=== PATIENT | male | born 1975 | race Two or more races ===

== ENCOUNTER 2022-01-27 09:11 | Inpatient (IN) | payer SELFPAY ==
[~2022-01-27] VITALS: Ht 172.7 cm; Wt 83.6 kg
[2022-01-27] VITALS (16 sets, daily range): BP systolic 101–126; BP diastolic 60–89
[2022-01-27] MEDS ORDERED: CLOPIDOGREL 300 MG TAB PO ONE (09:30)
[2022-01-27] MEDS ORDERED: ASPirin 81 mg TAB PO ONE ×2 (09:30)
[2022-01-27] MEDS ORDERED: HEPARIN 1,000 UNITS/ml 1ML VIAL IV ONE (09:30)
[2022-01-27] MEDS ORDERED: HEPARIN DRIP/D5W 100UNITS/ML 250 ML IV ONE (09:41)
[2022-01-27 09:43] LABS: Basophils # (auto) 0.1 10 ^3/uL (0-0.2); Eosinophils # (auto) 0.3 10 ^3/uL (0-0.8); Eosinophils % (auto) 2.3 % (0.0-7.0); Hemoglobin 14.5 g/dL (13.5-17.5); Lymphocytes # (auto) 2.7 10 ^3/uL (0.4-5.4); Mean Corpuscular Hemoglobin 32.9 pg (28.0-32.0); Mean Corpuscular Hgb Conc. 33.7 g/dL (32.0-36.0); Mean Corpuscular Volume 97.8 fL (80.0-100.0); Monocytes # (auto) 0.6 10 ^3/uL (0-1.3); Monocytes % (auto) 5.6 % (0.0-12.0); Neutrophils # (auto) 7.9 10 ^3/uL (1.6-8.6); Neutrophils % (auto) 68.1 % (37.0-80.0); Nucleated Red Blood Cells % 0.1 %; Red Cell Distribution Width 13.2 % (11.8-14.3); White Blood Cell 11.6 10^3/uL (4.4-10.8)
[2022-01-27] MEDS ORDERED: SODIUM CHLORIDE 0.9% 1,000 ML IV ONE (09:45)
[2022-01-27] MEDS ORDERED: NITROGLYCERIN 0.4 MG SL TAB SL PRN ×2 (09:45→10:45)
[2022-01-27] MEDS ORDERED: MORPHINE SULFATE INJ 2 MG/ml SYRG IV PRN ×2 (09:45→10:45)
[2022-01-27] MEDS ORDERED: HEPARIN DRIP/D5W 100UNITS/ML 250 ML IV SCH ×2 (09:45→10:00)
[2022-01-27] MEDS ORDERED: ANGIOMAX 250 MG VIAL IV ONE (09:50)
[2022-01-27] MEDS ORDERED: HEPARIN SODIUM (PORCINE) 5000 UNITS/ML 1ML VIAL ONE (09:50)
[2022-01-27] MEDS ORDERED: VERAPAMIL 2.5MG/ML INJ 2ML VIAL IV ONE (09:50)
[2022-01-27] MEDS ORDERED: fentaNYL CITRATE 100 MCG/2 ML VL ONE (09:50)
[2022-01-27] MEDS ORDERED: MIDAZOLAM HCL 2MG/2ML 2ml VIAL (1mg/ml) ONE (09:50)
[2022-01-27] MEDS ORDERED: SODIUM CHL 0.9% 50 ML ONE (09:51)
[2022-01-27] MEDS ORDERED: LIDOCAINE 2%HCL (LOCAL ANESTH.) INJ 20ML MDV ONE (09:51)
[2022-01-27 09:57] LABS: INR 0.95 (0.9-1.15); Partial Thromboplastin Time 22.7 sec (24.6-33.4)
[2022-01-27 10:02] LABS: Albumin 3.9 g/dL (3.4-5.0); Calcium 9.2 mg/dL (8.5-10.1); Magnesium 2.4 mg/dL (1.6-2.6); Potassium 4.9 mmol/L (3.5-5.1)
[2022-01-27 10:05] LABS: BUN/Creatinine Ratio 13.3; Bilirubin, Total 0.4 mg/dL (0.2-1.0); Total Protein 7.1 g/dL (6.4-8.2)
[2022-01-27] MEDS ORDERED: ATROPINE SULF 1 MG/10ml SYR ONE (10:13)
[2022-01-27] MEDS ORDERED: IODIXANOL 320MG/ML 100ML BTL IV ONE ×2 (10:15→10:45)
[2022-01-27] MEDS ORDERED: CLOPIDOGREL 300 MG TAB ONE (10:27)
[2022-01-27] MEDS ORDERED: EPTIFIBATIDE INJ (2MG/ML) 10ML VIAL IV ONE ×2 (10:28→10:41)
[2022-01-27] MEDS: ATORVASTATIN 20 MG TAB PO SCH (23:12)
[2022-01-28] VITALS (17 sets, daily range): BP systolic 78–114; BP diastolic 30–73
[2022-01-28 03:47] LABS: Basophils # (auto) 0.1 10 ^3/uL (0-0.2); Basophils % (auto) 0.6 % (0.0-2.0); Eosinophils # (auto) 0.2 10 ^3/uL (0-0.8); Eosinophils % (auto) 1.7 % (0.0-7.0); Hematocrit 37.5 % (41.0-53.0); Hemoglobin 12.8 g/dL (13.5-17.5); Lymphocytes # (auto) 3.3 10 ^3/uL (0.4-5.4); Lymphocytes % (auto) 23.7 % (10.0-50.0); Mean Corpuscular Hemoglobin 33.2 pg (28.0-32.0); Mean Corpuscular Hgb Conc. 34.1 g/dL (32.0-36.0); Mean Corpuscular Volume 97.4 fL (80.0-100.0); Monocytes % (auto) 7.1 % (0.0-12.0); Neutrophils # (auto) 9.4 10 ^3/uL (1.6-8.6); Neutrophils % (auto) 66.9 % (37.0-80.0); Red Blood Cells 3.85 10^6/uL (4.5-5.90); Red Cell Distribution Width 13.2 % (11.8-14.3)
[2022-01-28 03:58] LABS: Potassium 4.2 mmol/L (3.5-5.1)
[2022-01-28 04:03] LABS: BUN/Creatinine Ratio 23.7; Calcium 8.4 mg/dL (8.5-10.1)
[2022-01-28] MEDS: SODIUM CHLORIDE 0.9% 1,000 ML IV SCH ×2 (09:15→17:39)
[2022-01-28] MEDS ORDERED: ALPRAZolam 0.25 MG TAB PO PRN (09:15)
[2022-01-28] MEDS: CLOPIDOGREL BISULFATE 75 MG TAB PO SCH (09:44)
[2022-01-28] MEDS: ASPirin 81 mg TAB PO SCH (09:44)
[2022-01-28] MEDS: NICOTINE 7MG/24HR TOPICAL PATCH TD SCH (10:19)
[2022-01-28] MEDS: ATORVASTATIN 20 MG TAB PO SCH (21:40)
[2022-01-29 05:00] VITALS: BP 103/59
[2022-01-29 09:00] VITALS: BP 100/62
[2022-01-29] MEDS: CLOPIDOGREL BISULFATE 75 MG TAB PO SCH (10:48)
[2022-01-29] MEDS: NICOTINE 7MG/24HR TOPICAL PATCH TD SCH (10:48)
[2022-01-29] MEDS: ASPirin 81 mg TAB PO SCH (10:48)
[2022-01-29 12:46] VITALS: BP 100/65
[2022-01-29] MEDS ORDERED: BUSP7.5T8 PO (14:54)
[2022-01-29] MEDS ORDERED: ATOR20TA50 PO (14:54)
[2022-01-29] MEDS ORDERED: ASPI-325 PO (14:54)
[2022-01-29] MEDS ORDERED: CLOP75TA70 PO (14:54)
[2022-01-29 17:40] VITALS: BP 127/86
== END 2022-01-29 18:50 | disposition home or self-care (01) | DRG 247 ==
LOC: ER 09:11 → TELE 09:40 → ICU WEST 11:20 → CENTRAL 01-28 16:59 → TELE-CENTR 01-28 21:33
PROVIDERS: ADMIT Registered Nurse; ATTEND Nurse Practitioner Acute Care
PROC: 027034Z Dilation of Coronary Artery, One Artery with Drug-eluting Intraluminal Device, Percutaneous Approach (ICD-10-PCS; principal; 2022-01-27)
PROC: B2111ZZ Fluoroscopy of Multiple Coronary Arteries using Low Osmolar Contrast (ICD-10-PCS; 2022-01-27)
DX: I21.19 ST elevation (STEMI) myocardial infarction involving other coronary artery of inferior wall (principal); K46.9 Unspecified abdominal hernia without obstruction or gangrene; E78.5 Hyperlipidemia, unspecified; F17.200 Nicotine dependence, unspecified, uncomplicated; I25.10 Atherosclerotic heart disease of native coronary artery without angina pectoris; Z20.822 Contact with and (suspected) exposure to COVID-19
CPT/HCPCS: 36415; 71045; 80048; 80053; 83735; 83880; 84484; 85025; 85610; 85730; 86850; 86900; 86901; 92928; 93005; 93306; 93458; 96361; 96374; 99152; 99153; 99291; C1874; C1887; G0378; J2250; Q9967

== ENCOUNTER 2024-03-30 22:59 | Emergency (ER) | payer MEDICAID ==
[~2024-03-30] VITALS: Ht 172.7 cm; Wt 84.2 kg
[~2024-03-30 22:59] MED LIST: ASPI-325 PO; ATOR20TA50 PO; BUSP7.5T8 PO; CLOP75TA70 PO
--- NOTE | 2024-03-30 23:38 | ECG ---
[facility] Test Date: 2024-03-30 Test Time: 23:23:41 Pat Name: JANICE GRIFFIN Department: ER Room: Gender: M Well [employer] Pumper: : 1975 Requested By: WALTER RETANA Order Number: [id number] Reading MD: Raymon Gross Measurements Intervals [place] Rate: 58 P: 74 HI: 153 QRS: -12 QRSD: 104 T: -33 QT: 412 QTc: 405 Interpretive Statements Sinus rhythm Inferior infarct, age indeterminate Minimal ST elevation, anterior leads Electronically Signed On 03-31-2024 8:28:32 PST by Raymon Gross Please click the below link to view image of tracing.
[2024-03-30 23:54] LABS: Basophils # (auto) 0.1 10 ^3/uL (0-0.2); Basophils % (auto) 0.8 % (0.0-2.0); Eosinophils # (auto) 0.2 10 ^3/uL (0-0.8); Eosinophils % (auto) 2.1 % (0.0-7.0); Hematocrit 42.8 % (41.0-53.0); Hemoglobin 14.6 g/dL (13.5-17.5); Lymphocytes # (auto) 2.5 10 ^3/uL (0.4-5.4); Lymphocytes % (auto) 23.3 % (10.0-50.0); Mean Corpuscular Hemoglobin 33.6 pg (28.0-32.0); Mean Corpuscular Hgb Conc. 34.2 g/dL (32.0-36.0); Mean Corpuscular Volume 98.5 fL (80.0-100.0); Monocytes # (auto) 0.7 10 ^3/uL (0-1.3); Monocytes % (auto) 6.4 % (0.0-12.0); Neutrophils # (auto) 7.1 10 ^3/uL (1.6-8.6); Neutrophils % (auto) 67.4 % (37.0-80.0); Nucleated Red Blood Cells % 0.2 %; Platelet Count (auto) 214 10^3/uL (140-450); Red Blood Cells 4.35 10^6/uL (4.5-5.90); White Blood Cell 10.6 10^3/uL (4.4-10.8)
--- NOTE | 2024-03-30 23:57 | DVH ---
EXAMINATION: PA and lateral chest radiographs CLINICAL HISTORY: SOB COMPARISON: CHEST PORTABLE on DOS: 01/28/22 FINDINGS: No dominant consolidation. The costophrenic angles appear clear. No sizable pleural effusions or pne umothorax. The cardiomediastinal silhouette appears within normal limits. IMPRESSION: No acute cardiopulmonary findings.
[2024-03-31] MEDS: MAALOX PLUS or MAALOX 30 ML PO ONE (00:06)
[2024-03-31] MEDS: ONDANSETRON ODT 4 MG TAB PO ONE (00:06)
[2024-03-31] MEDS: LIDOCAINE VISCOUS 2% 15ML UD MT ONE (00:07)
[2024-03-31 00:09] LABS: Chloride 105 mmol/L (98-107); Potassium 4.1 mmol/L (3.5-5.1); Sodium 140 mmol/L (136-145)
[2024-03-31 00:10] LABS: Anion Gap 9 (5-15); Carbon Dioxide 26 mmol/L (20-31)
[2024-03-31 00:15] LABS: BUN/Creatinine Ratio 16.2 (10.0-20.0); Blood Urea Nitrogen 16 mg/dL (9-23); Glucose 119 mg/dL (74-106)
--- NOTE | 2024-03-31 00:17 | DVH ---
CT SCAN ABDOMEN AND PELVIS WITHOUT CONTRAST CLINICAL HISTORY: Abd pain TECHNIQUE: Helical axial images are obtained from the lung bases through the pelvis without oral cont rast. No intravenous contrast was administered. Coronal and sagittal reformatted images were generate d from thin section reconstructions. One or more of the following radiation dose reduction techniques were used for this examination: automated exposure control, adjustment of the mA and/or kV according to patient size, use of iterative reconstruction technique. COMPARISON: None FINDINGS: LOWER THORAX: Mild dependent atelectasis/ scarring in the imaged lung bases. Coronary artery calcifications. ABDOMEN AND PELVIS: Evaluation of visceral and vascular structures is limited due to lack of contrast administration. As visualized, the unenhanced liver, spleen, pancreas and adrenals appear grossly unremarkable. Gallbladder is mildly distended with multiple calculi. A stone is also noted within the gallbladder n sánchez. No hydroureteronephrosis. Aortoiliac atherosclerotic calcifications. No evidence of abdominal aortic aneurysm. No evidence of bowel obstruction. Normal caliber appendix. No free intraperitoneal air or fluid ident ified. No sizable bladder calculus. Prostate calcifications noted. Fat containing left inguinal hernia. No destructive osseous lesions identified. IMPRESSION: Cholelithiasis with gallbladder distention. A stone is also noted within the gallbladder neck. Ultras ound may be obtained to further evaluate for possible cholecystitis. Other ancillary findings as above. HS:Y
[2024-03-31 00:31] LABS: Lipase 40 U/L (12-53)
--- NOTE | 2024-03-31 00:35 | ED.PDOC ---
History of Present Illness HPI Comments 49 y/o M, with a Hx of HLD, HTN, MD, PTCA, hernia repair, and polysubstance use, presents with c/o epigastric abdominal pain, nausea, vomiting, shortness of breath, dizziness, lightheadedness, and generalized weakness, today. Patient endorses on sudden and unprovoked onset of symptoms at around 2000, yesterday, evening. Patient comments on pain being an 8/10 and similar to when he had an MD 2x years ago, with exception of left-arm pain he had then. Patient informs on difficulty breathing subsiding at time of assessment and having no recent lifestyle or diet changes or event occurrences in his life. He denies having any chest pain, cough, hematemesis, diarrhea, urinary symptoms, fever, chills, or other associated symptoms or modifiers at this time. Chief Complaint: Abdominal Pain Time Seen by MD: 23:50 Primary Care Provider: none Reviewed Notes: Nurses Notes, Medications, Allergies Allergies: Coded Allergies: NO KNOWN ALLERGIES (Unverified , 01/27/22) Home Meds Active Scripts Buspirone Hcl (Buspirone Hcl) 7.5 Mg Tab, 1 TAB PO BID, #60 TAB 2 Refills Prov:ROSEMARIE SZYMANSKI NP 01/29/22 Clopidogrel Bisulfate (CLOPIDOGREL) 75 Mg Tab, 75 MG PO DAILY for 60 Days, #60 TAB Prov:ROSEMARIE SZYMANSKI NP 01/29/22 Atorvastatin Calcium (ATORVASTATIN CALCIUM) 20 Mg Tab, 80 MG PO HS for 60 Days, #240 TAB Prov:ROSEMARIE SZYMANSKI NP 01/29/22 Aspirin (Aspirin Low Dose) 81 Mg Tab, 81 MG PO DAILY for 60 Days, #60 TAB Prov:ROSEMARIE SZYMANSKI NP 01/29/22 Information Source: Patient Mode of Arrival: Ambulatory Past Medical History PAST MEDICAL HISTORY: High Lipids, HTN, MD Surgical History: Hernia Repair, PTCA Family History Family History: Reviewed,noncontributory to illness Social History Smoker: Cigarettes Alcohol: Occasionally Drugs: Denies Drug Use Lives In: Home Constitutional: denies: chills, diaphoresis, fatigue, fever, malaise, sweats, weakness, others EENTM: denies: blurred vision, double vision, ear bleeding, ear discharge, ear drainage, ear pain, ear ringing, eye pain, eye redness, hearing loss, mouth pain, mouth swelling, nasal discharge, nose bleeding, nose congestion, nose pain, photophobia, tearing, throat pain, throat swelling, voice changes, others Respiratory: reports: shortness of breath; denies: cough, hemoptysis, orthopnea, SOB at rest, SOB with excertion, stridor, wheezing, others Cardiovascular: reports: lightheadedness; denies: chest pain, dizzy spells, diaphoresis, Dyspnea on exertion, edema, irregular heart beat, left arm pain, palpitations, PND, syncope, others Gastrointestinal: reports: abdominal pain, nausea, vomiting; denies: abdomen distended, blood streaked bowels, constipated, diarrhea, dysphagia, difficulty swallowing, hematemesis, melena, poor appetite, poor fluid intake, rectal bleeding, rectal pain, others Genitourinary: denies: burning, dysuria, flank pain, frequency, hematuria, incontinence, penile discharge, penile sore, pain, testicle pain, testicle swelling, urgency, others Neurological: reports: dizziness, weakness; denies: fainting, headache, left sided numbness, left sided weakness, numbness, paresthesia, pre-existing deficit, right sided numbness, right sided weakness, seizure, speech problems, tingling, tremors, others Musculoskeletal: denies: back pain, gout, joint pain, joint swelling, muscle pain, muscle stiffness, neck pain, others Integumetry: denies: bruises, change in color, change in hair/nails, dryness, laceration, lesions, lumps, rash, wounds, others Allergic/Immunocompromised: denies: Difficulty Healing, Frequent Infections, Hives, Itching, others Hematologic/Lymphatic: denies: anemia, blood clots, easy bleeding, easy bruising, swollen glands, others Endocrine: denies: excessive hunger, excessive sweating, excessive thirst, excessive urination, flushing, intolerance to cold, intolerance to heat, unexplained weight gain, unexplained weight loss, others Psychiatric: denies: anxiety, bipolar disorder, depression, hopeless, panic disorder, schizophrenia, sleepless, suicidal, others All Other Systems: Reviewed and Negative Physical Exam General Appearance: No Apparent Distress, Normal HEENT: Normal ENT Inspection, Pharynx Normal, TMs Normal Neck: Full Range of Motion, Non-Tender, Normal, Normal Inspection Respiratory: Chest Non-Tender, Lungs Clear, No Accessory Muscle Use, No Respiratory Distress, Normal Breath Sounds Cardiovascular: No Edema, No JVD, No Murmur, No Gallop, Normal Peripheral Pulses, Regular Rate/Rhythm Breast Exam: Deferred Gastrointestinal: Epigastric (tenderness), No Organomegaly, No Pulsatile Mass, Normal Bowel Sounds, Soft, Tenderness (epigastric region) Genitalia: Deferred Pelvic: Deferred Rectal: Deferred Extremities: No calf tenderness, Normal capillary refill, Normal inspection, Normal range of motion, Non-tender, No pedal edema Musculoskeletal : Apperance: Normal Neurologic: Alert, chief data officer II-XII nml as Tested, No Motor Deficits, Normal Affect, Normal Mood, No Sensory Deficits Cerebellar Function: Normal Reflexes: Normal Skin: Dry, Normal Color, Warm Lymphatic: No Adenopathy Was a procedure done? Was a procedure done?: No EKG EKG : Pulse Rate (adult): 58 [place]: Normal Cardiac Rhythm: NSR Block: None Hypertrophy: None ST: Normal Differential Dx Considerations may include: MD, gastritis, gastroenteritis, GERD, spoiled food, viral syndrome X-Ray, Labs, Meds, VS Vital Signs Date Time Temp Pulse Resp B/P (MAP) Pulse Ox O2 Delivery O2 Flow Rate FiO2 03/31/24 00:35 58 03/30/24 23:23 58 03/30/24 23:22 98.6 63 16 140/90 (107) 99 Lab Test 03/31/24 00:26 03/30/24 23:47 Range/Units Total Bilirubin 0.3 0.2-1.0 mg/dL Troponin I High Sensitivity 6 7 </=54 ng/L White Blood Count 10.6 4.4-10.8 10^3/uL Red Blood Count 4.35 L 4.5-5.90 10^6/uL Hemoglobin 14.6 13.5-17.5 g/dL Hematocrit 42.8 41.0-53.0 % Mean Corpuscular Volume 98.5 80.0-100.0 fL Mean Corpuscular Hemoglobin 33.6 H 28.0-32.0 pg Mean Corpuscular Hemoglobin Concent 34.2 32.0-36.0 g/dL Red Cell Distribution Width 13.0 11.8-14.3 % Platelet Count 214 140-450 10^3/uL Mean Platelet Volume 8.5 6.9-10.8 fL Neutrophils (%) (Auto) 67.4 37.0-80.0 % Lymphocytes (%) (Auto) 23.3 10.0-50.0 % Monocytes (%) (Auto) 6.4 0.0-12.0 % Eosinophils (%) (Auto) 2.1 0.0-7.0 % Basophils (%) (Auto) 0.8 0.0-2.0 % Neutrophils # (Auto) 7.1 1.6-8.6 10 ^3/uL Lymphocytes # (Auto) 2.5 0.4-5.4 10 ^3/uL Monocytes # (Auto) 0.7 0-1.3 10 ^3/uL Eosinophils # (Auto) 0.2 0-0.8 10 ^3/uL Basophils # (Auto) 0.1 0-0.2 10 ^3/uL Nucleated Red Blood Cells 0.2 % Sodium Level 140 136-145 mmol/L Potassium Level 4.1 3.5-5.1 mmol/L Chloride Level 105 98-107 mmol/L Carbon Dioxide Level 26 20-31 mmol/L Anion Gap 9 5-15 Blood Urea Nitrogen 16 9-23 mg/dL Creatinine 0.99 0.700-1.30 mg/dL Glomerular Filtration Rate Calc 93 >90 mL/min BUN/Creatinine Ratio 16.2 10.0-20.0 Serum Glucose 119 H 74-106 mg/dL Calcium Level 10.0 8.7-10.4 mg/dL Lipase 40 12-53 U/L Current Medications Medications (Trade) Dose Ordered Sig/Melony Route Start Time Stop Time Status Last Admin Ondansetron HCl (Zofran Po) 4 mg ONCE ONCE PO 03/30/24 23:45 03/30/24 23:46 DC 03/31/24 00:06 Al Hydrox/Mg Hydrox/Simethicone (Maalox Plus) 30 ml ONCE ONCE PO 03/30/24 23:45 03/30/24 23:46 DC 03/31/24 00:06 Lidocaine HCl (Xylocaine 2% Viscous) 5 ml ONCE ONCE MT 03/30/24 23:45 03/30/24 23:46 DC 03/31/24 00:07 [place] [id number] Ph: [phone] DIAGNOSTIC IMAGING Diagnostic Imaging Report : [id number] Signed PATIENT: JANICE GRIFFIN ACCT: [id number] UNIT: [id number] : 1975 LOC: ER ROOM / BED: / AGE / SEX: 49 / M ADM STATUS: REG ER SERVICE 20 ORDERING PHYSICIAN: WALTER RETANA MD PROCEDURE(s): CXRP - CHEST PORTABLE REASON: SOB ORDER NUMBER(s): [id number], ACCESSION NUMBER(s): [id number] EXAMINATION: PA and lateral chest radiographs CLINICAL HISTORY: SOB COMPARISON: CHEST PORTABLE on DOS: 01/28/22 FINDINGS: No dominant consolidation. The costophrenic angles appear clear. No sizable pleural effusions or pneumothorax. The cardiomediastinal silhouette appears within normal limits. IMPRESSION: No acute cardiopulmonary findings. ATED BY: FRANK MUHAMMAD MD DICTATED DATE/TIME: 03/30/242354 SIGNED BY: FRANK MUHAMMAD MD SIGNED DATE/TIME: 03/30/242354 CC: [place] [id number] Ph: [phone] DIAGNOSTIC IMAGING Diagnostic Imaging Report : [id number] Signed PATIENT: JANICE GRIFFIN ACCT: [id number] UNIT: [id number] : 1975 LOC: ER ROOM / BED: / AGE / SEX: 49 / M ADM STATUS: REG ER SERVICE 232 ORDERING PHYSICIAN: WALTER RETANA MD PROCEDURE(s): CXRP - CHEST PORTABLE REASON: SOB ORDER NUMBER(s): [id number], ACCESSION NUMBER(s): [id number] EXAMINATION: PA and lateral chest radiographs CLINICAL HISTORY: SOB COMPARISON: CHEST PORTABLE on DOS: 01/28/22 FINDINGS: No dominant consolidation. The costophrenic angles appear clear. No sizable pleural effusions or pneumothorax. The cardiomediastinal silhouette appears within normal limits. IMPRESSION: No acute cardiopulmonary findings. ATED BY: FRANK MUHAMMAD MD DICTATED DATE/TIME: 03/30/242354 SIGNED BY: FRANK MUHAMMAD MD SIGNED DATE/TIME: 03/30/242354 CC: X-Ray, Labs, Meds, VS Comment Imaging: X-rays and CT scans were reviewed and interpreted by this provider, cholelithiasis with no obvious obstruction. Pending radiology review. Ultrasound shows no visible common bile duct Laboratory: Labs reviewed and interpreted by this provider. No significant abnormalities noted. Patient has prior medical visits reviewed. Med reconciliation performed Vital signs reviewed Time of 1ST Reevaluation: 00:20 Reevaluation 1ST: Improved Patient Education/Counseling: Diagnosis, Treatment, Need For Follow Up (Patient advised to follow-up in the emergency room in the next 24 to 48 hours if symptoms do not improve. Advised follow-up with PCP in the next 3 to 5 days. Patient verbalized understanding. ) Family Education/Counseling: No Family Present Departure 1 Departure Time of Disposition: 02:40 Impression: Primary Impression: Cholelithiasis Qualified Codes: K80.20 - Calculus of gallbladder without cholecystitis without obstruction Disposition: HOME / SELF CARE / HOMELESS Condition: Fair Discharged With: Self Critical Care Note Critical Care Time?: No Stability Stability form required: No Heart Score Heart Score: Heart Score Response (Comments) Value History Moderate Suspicious 1 EKG Normal 0 Age 45-64 1 Risk Factors >3 or Hx ASHD 2 Troponin N/A 0 Total 4 I personally scribed for LUIS M DEJESUS (MARLON) on 03/31/24 at 00:35. Electronically submitted by Toro Rocha ([email or web address]). I personally scribed for LUIS M DEJESUS (MARLON) on 03/31/24 at 01:31. Electronically submitted by Toro Rocha ([email or web address]). LUIS M DEJESUS Mar 31, 2024 00:35
[2024-03-31 02:30] VITALS: BP 129/85; PULSE 66; RESP 13; TEMP 98.2; O2SAT 98
[2024-03-31] MEDS: KETOROLAC TROMETH 30 MG/ML 1ML VIAL IM ONE (02:50)
--- NOTE | 2024-03-31 03:09 | DVH ---
Examination: GBUS CLINICAL INDICATION: abd pain COMPARISON: None. TECHNIQUE: Using real-time ultrasonic imaging, the abdomen was examined. FINDINGS: The liver is normal in size and measures 160 mm. It demonstrates smooth border and normal echogenicity, with no evidence of intrahepatic ductal dilatation. Hepatic veins are patent. Main p ortal vein shows normal hepatopetal flow. The gallbladder is distended and shows mobile stones, tumefactive sludge. A stone is noted at the ne ck of the gallbladder. The gallbladder wall is thickened and measures 4.8 mm. The common bile duct is not visualized. Sonographic [place] sign is negative. The pancreas is not visualized. Right kidney demonstrates normal morphology and cortical echogenicity, with no evidence of stones, ma sses or hydronephrosis. Right kidney measures 10 cm. IMPRESSION: 1. Distended gallbladder with multiple stones and gallbladder wall thickening. 2. No renal calculi or hydronephrosis. Electronically Signed 03/31/2024 03:08 Ileana Herrera
== END 2024-03-31 03:02 | disposition home or self-care (01) ==
LOC: ER 22:59
DX: K80.20 Calculus of gallbladder without cholecystitis without obstruction (principal); I10 Essential (primary) hypertension; E78.5 Hyperlipidemia, unspecified; F17.210 Nicotine dependence, cigarettes, uncomplicated; Z79.82 Long term (current) use of aspirin; Z79.899 Other long term (current) drug therapy; Z98.890 Other specified postprocedural states
CPT/HCPCS: 36415; 71045; 74176; 76705; 80048; 82247; 83690; 84484; 85025; 93005; 96372; 99285; J1885; Q0162

== ENCOUNTER 2024-06-14 05:54 | Inpatient (IN) | payer MEDICAID ==
[~2024-06-14] VITALS: Ht 172.7 cm; Wt 85.0 kg
--- NOTE | 2024-06-14 06:12 | ED.PDOC ---
GI ASSESSMENT HPI Comments 49-year-old male presents with a chief complaint of abdominal pain x onset last night with associated nausea and vomiting. Patient reports that his pain is localized to his RUQ, describes as sharp, rates his pain a 10/10, and feels like his previous gallbladder attack. Patient also reports intermittent vomiting with constant nausea. Patient denies any alcohol or drugs on board. Patient was mildly hypertensive in triage at 136/87. No other symptoms or modifying factors present at this time. Chief Complaint: Abdominal Pain Time Seen by MD: 06:02 Primary Care Provider: none Reviewed Notes: Medications, Allergies Allergies: Coded Allergies: NO KNOWN ALLERGIES (Unverified , 01/27/22) Home Meds Active Scripts Buspirone Hcl (Buspirone Hcl) 7.5 Mg Tab, 1 TAB PO BID, #60 TAB 2 Refills Prov:ROSEMARIE SZYMANSKI NP 01/29/22 Clopidogrel Bisulfate (CLOPIDOGREL) 75 Mg Tab, 75 MG PO DAILY for 60 Days, #60 TAB Prov:ROSEMARIE SZYMANSKI NP 01/29/22 Atorvastatin Calcium (ATORVASTATIN CALCIUM) 20 Mg Tab, 80 MG PO HS for 60 Days, #240 TAB Prov:ROSEMARIE SZYMANSKI NP 01/29/22 Aspirin (Aspirin Low Dose) 81 Mg Tab, 81 MG PO DAILY for 60 Days, #60 TAB Prov:ROSEMARIE SZYMANSKI NP 01/29/22 Information Source: Patient Mode of Arrival: Ambulatory Timing: Hours Duration: Since onset Prehospital treatment: None Quality: Sharp Vomitus: Bilious Stool: Normal Severity: Moderate Recent: None Recent Hx of: None Pain Location: RUQ Associated sign and symptoms: Nausea, Vomiting, Abdominal Pain Past Medical History PAST MEDICAL HISTORY: High Lipids, HTN, [place] Surgical History: Hernia Repair, PTCA Family History Family History: Reviewed,noncontributory to illness Social History Smoker: Cigarettes Alcohol: Occasionally Drugs: Denies Drug Use Lives In: Home Constitutional: denies: chills, diaphoresis, fatigue, fever, malaise, sweats, weakness, others EENTM: denies: blurred vision, double vision, ear bleeding, ear discharge, ear drainage, ear pain, ear ringing, eye pain, eye redness, hearing loss, mouth pain, mouth swelling, nasal discharge, nose bleeding, nose congestion, nose pain, photophobia, tearing, throat pain, throat swelling, voice changes, others Respiratory: denies: cough, hemoptysis, orthopnea, SOB at rest, shortness of breath, SOB with excertion, stridor, wheezing, others Cardiovascular: denies: chest pain, dizzy spells, diaphoresis, Dyspnea on exertion, edema, irregular heart beat, left arm pain, lightheadedness, palpitations, PND, syncope, others Gastrointestinal: reports: abdominal pain, nausea, vomiting; denies: abdomen distended, blood streaked bowels, constipated, diarrhea, dysphagia, difficulty swallowing, hematemesis, melena, poor appetite, poor fluid intake, rectal bleeding, rectal pain, others Genitourinary: denies: burning, dysuria, flank pain, frequency, hematuria, incontinence, penile discharge, penile sore, pain, testicle pain, testicle swelling, urgency, others Neurological: denies: dizziness, fainting, headache, left sided numbness, left sided weakness, numbness, paresthesia, pre-existing deficit, right sided numbness, right sided weakness, seizure, speech problems, tingling, tremors, weakness, others Musculoskeletal: denies: back pain, gout, joint pain, joint swelling, muscle pain, muscle stiffness, neck pain, others Integumetry: denies: bruises, change in color, change in hair/nails, dryness, laceration, lesions, lumps, rash, wounds, others Allergic/Immunocompromised: denies: Difficulty Healing, Frequent Infections, Hives, Itching, others Hematologic/Lymphatic: denies: anemia, blood clots, easy bleeding, easy bruisin g, swollen glands, others Endocrine: denies: excessive hunger, excessive sweating, excessive thirst, excessive urination, flushing, intolerance to cold, intolerance to heat, unexplained weight gain, unexplained weight loss, others Psychiatric: denies: anxiety, bipolar disorder, depression, hopeless, panic disorder, schizophrenia, sleepless, suicidal, others All Other Systems: Reviewed and Negative Physical Exam General Appearance: Moderate Distress, Normal, Other (APPEARS UNCOMFORTABLE) HEENT: Normal ENT Inspection, Pharynx Normal, TMs Normal Neck: Full Range of Motion, Non-Tender, Normal, Normal Inspection Respiratory: Chest Non-Tender, Lungs Clear, No Accessory Muscle Use, No Respiratory Distress, Normal Breath Sounds Cardiovascular: No Edema, No JVD, No Murmur, No Gallop, Normal Peripheral Pulses, Regular Rate/Rhythm Breast Exam: Deferred Gastrointestinal: No Organomegaly, No Pulsatile Mass, Normal Bowel Sounds, RUQ, Soft, Tenderness Genitalia: Deferred Pelvic: Deferred Rectal: Deferred Extremities: No calf tenderness, Normal capillary refill, Normal inspection, Normal range of motion, Non-tender, No pedal edema Musculoskeletal : Apperance: Normal Neurologic: Alert, slab off mill tender II-XII nml as Tested, No Motor Deficits, Normal Affect, Normal Mood, No Sensory Deficits Cerebellar Function: Normal Reflexes: Normal Skin: Dry, Normal Color, Warm Lymphatic: No Adenopathy Was a procedure done? Was a procedure done?: No GI differential Dx Differential Diagnosis: Appendicitis, Cholangitis, Cholecystitis, UTI, Deh ydration, Electrolyte Imbalance, Kidney Stone X-Ray, Labs, Meds, VS Vital Signs Date Time Temp Pulse Resp B/P (MAP) Pulse Ox O2 Delivery O2 Flow Rate FiO2 06/14/24 07:19 Room Air* 0 21 06/14/24 07:19 97.5 48 24 147/93 (111) 96 97.5 06/14/24 06:50 51 22 148/81 06/14/24 06:30 97.6 66 18 136/87 (103) 99 97.6 06/14/24 06:30 98 Room Air* 0 21 06/14/24 06:23 54 06/14/24 06:18 60 18 136/87 06/14/24 06:06 97.7 60 18 136/87 (103) 99 Lab Test 06/14/24 07:05 Range/Units White Blood Count 12.1 H 4.4-10.8 10^3/uL Red Blood Count 4.33 L 4.5-5.90 10^6/uL Hemoglobin 14.6 13.5-17.5 g/dL Hematocrit 42.5 41.0-53.0 % Mean Corpuscular Volume 98.2 80.0-100.0 fL Mean Corpuscular Hemoglobin 33.7 H 28.0-32.0 pg Mean Corpuscular Hemoglobin Concent 34.3 32.0-36.0 g/dL Red Cell Distribution Width 12.8 11.8-14.3 % Platelet Count 193 140-450 10^3/uL Mean Platelet Volume 8.5 6.9-10.8 fL Neutrophils (%) (Auto) 84.0 H 37.0-80.0 % Lymphocytes (%) (Auto) 11.4 10.0-50.0 % Monocytes (%) (Auto) 3.7 0.0-12.0 % Eosinophils (%) (Auto) 0.4 0.0-7.0 % Basophils (%) (Auto) 0.5 0.0-2.0 % Neutrophils # (Auto) 10.1 H 1.6-8.6 10 ^3/uL Lymphocytes # (Auto) 1.4 0.4-5.4 10 ^3/uL Monocytes # (Auto) 0.4 0-1.3 10 ^3/uL Eosinophils # (Auto) 0 0-0.8 10 ^3/uL Basophils # (Auto) 0.1 0-0.2 10 ^3/uL Nucleated Red Blood Cells 0.1 % Sodium Level 139 136-145 mmol/L Potassium Level 3.6 3.5-5.1 mmol/L Chloride Level 104 98-107 mmol/L Carbon Dioxide Level 26 20-31 mmol/L Anion Gap 9 5-15 Blood Urea Nitrogen 12 9-23 mg/dL Creatinine 0.92 0.700-1.30 mg/dL Glomerular Filtration Rate Calc 102 >90 mL/min BUN/Creatinine Ratio 13.0 10.0-20.0 Serum Glucose 115 H 74-106 mg/dL Lactic Acid Level 1.4 0.4-2.0 mmol/L Calcium Level 9.3 8.7-10.4 mg/dL Total Bilirubin 0.5 0.2-1.0 mg/dL Aspartate Amino Transferase (AST) 22 13-40 U/L Alanine Aminotransferase (ALT) 30 7-40 U/L Alkaline Phosphatase 96 46-116 U/L Total Protein 6.9 5.7-8.2 g/dL Albumin 4.7 3.2-4.8 g/dL Lipase 31 12-53 U/L Current Medications Medications (Trade) Dose Ordered Sig/Melony Route Start Time Stop Time Status Last Admin Sodium Chloride 1,000 ml @ 1,000 mls/hr Q1H ONCE IV 06/14/24 06:15 06/14/24 07:14 DC 06/14/24 06:18 Ondansetron HCl (Zofran) 4 mg ONCE ONCE IV 06/14/24 06:15 06/14/24 06:16 DC 06/14/24 06:18 Morphine Sulfate 4 mg ONCE ONCE IV 06/14/24 06:15 06/14/24 06:16 DC 06/14/24 06:18 Time of 1ST Reevaluation: 06:32 Reevaluation 1ST: Unchanged Patient Education/Counseling: Diagnosis, Treatment, Prognosis Family Education/Counseling: Diagnosis, Treatment, Prognosis Departure 1 Departure Time of Disposition: 09:03 (Patient presented with abdominal pain that was concerning for possible appendicits, gastritis, cholecystitis, colitis, gastroenteritis, sbo, or orther possible surgical emergency. Data: 1. I ordered and reviewed the result of at least 3 labs including a CBC, BMP, and Urinalysis. 2. I independently interpreted the following tests: CT Abdoment and Pelvis is concerning for acute cholecystitis .Risk:This patient has a high risk of morbidity due to further diagnostic testing or treatment and may suffer from an acute abdominal process disorder. Workup reveals acute cholecystitis and patient should be admitted for further workup. and possible expert consultation. ) Impression: Primary Impression: Acute cholecystitis Additional Impressions: Right upper quadrant pain Projectile vomiting with nausea Disposition: 09 ADMITTED INPATIENT Admit to: Med Surg Condition: Guarded Critical Care Note Critical Care Time?: Yes Critical care comment: Intractable abdominal pain Authorized and Performed by: Jacquelyn Early MD Total critical care time: Approximately 38 minutes Due to a high probability of clinically significant, life threatening deterioration, the patient required my highest level of preparedness to intervene emergently and I personally spent this critical care time directly and personally managing the patient. This critical care time included obtaining a history; examining the patient; pulse oximetry; ordering and review of studies; arranging urgent treatment with development of a management plan; evaluation of patient's response to treatment; frequent reassessment; and, discussions with other providers. This critical care time was performed to assess and manage the high probability of imminent, life-threatening deterioration that could result in multi-organ failure. It was exclusive of separately billable procedures and treating other patients and teaching time. Please see my other sections and the rest of the note for further information on patient assessment and treatment. Stability Stability form required: No I personally scribed for JACQUELYN EARLY MD ([email or web address]) on 06/14/24 at 06:12. Electronically submitted by Chano Peter ([email or web address]). JACQUELYN EARLY MD Jun 14, 2024 06:12
[2024-06-14] MEDS: SODIUM CHLORIDE 0.9% 1,000 ML IV ONE ×2 (06:18→09:54)
[2024-06-14] MEDS: MORPHINE SULFATE 4 MG/ML SYR/VIAL IV ONE ×2 (06:18→10:11)
[2024-06-14] MEDS: ONDANSETRON HCL 4 MG/2 ML VIAL IV ONE ×2 (06:18→10:12)
[2024-06-14 06:30] VITALS: O2SAT 98
[2024-06-14 07:22] LABS: Basophils # (auto) 0.1 10 ^3/uL (0-0.2); Basophils % (auto) 0.5 % (0.0-2.0); Eosinophils # (auto) 0 10 ^3/uL (0-0.8); Eosinophils % (auto) 0.4 % (0.0-7.0); Hematocrit 42.5 % (41.0-53.0); Hemoglobin 14.6 g/dL (13.5-17.5); Lymphocytes # (auto) 1.4 10 ^3/uL (0.4-5.4); Lymphocytes % (auto) 11.4 % (10.0-50.0); Mean Corpuscular Hemoglobin 33.7 pg (28.0-32.0); Mean Corpuscular Hgb Conc. 34.3 g/dL (32.0-36.0); Mean Corpuscular Volume 98.2 fL (80.0-100.0); Monocytes # (auto) 0.4 10 ^3/uL (0-1.3); Monocytes % (auto) 3.7 % (0.0-12.0); Neutrophils # (auto) 10.1 10 ^3/uL (1.6-8.6); Nucleated Red Blood Cells % 0.1 %; Platelet Count (auto) 193 10^3/uL (140-450); Red Blood Cells 4.33 10^6/uL (4.5-5.90); Red Cell Distribution Width 12.8 % (11.8-14.3); White Blood Cell 12.1 10^3/uL (4.4-10.8)
[2024-06-14 07:38] LABS: Alanine Aminotransferase 30 U/L (7-40); Alkaline Phosphatase 96 U/L (46-116); Anion Gap 9 (5-15); Blood Urea Nitrogen 12 mg/dL (9-23); Calcium 9.3 mg/dL (8.7-10.4); Carbon Dioxide 26 mmol/L (20-31); Chloride 104 mmol/L (98-107); Potassium 3.6 mmol/L (3.5-5.1); Sodium 139 mmol/L (136-145)
[2024-06-14 07:39] LABS: Albumin 4.7 g/dL (3.2-4.8); Aspartate Aminotransferase 22 U/L (13-40); Bilirubin, Total 0.5 mg/dL (0.2-1.0); Total Protein 6.9 g/dL (5.7-8.2)
[2024-06-14 07:41] LABS: Glucose 115 mg/dL (74-106)
[2024-06-14 07:51] LABS: Lipase 31 U/L (12-53)
--- NOTE | 2024-06-14 08:17 | DVH ---
EXAM: US GALLBLADDER INDICATION: ruq pain TECHNIQUE: Multiple real-time sonographic images were obtained of the right upper quadrant. COMPARISON: US GALLBLADDER on DOS: 03/31/24 FINDINGS: The liver demonstrates increased echotexture without focal mass lesions. There is hepatope tobias color doppler flow in the main portal vein. There is no intrahepatic biliary ductal dilatation. The gallbladder contains multiple gallstones. The gallbladder wall measures 0.5 cm. The common bi le duct measures 0.6 cm. There is a positive sonographic Escalante's sign. The right kidney measures 11.6 cm. The right kidney is normal in contour, size, and shape. The ech ogenicity is normal. There is no hydronephrosis. The pancreas is not well visualized due to overlying bowel gas. Visualized portions of the aorta and inferior vena cava are unremarkable. No evidence of ascites. IMPRESSION: 1. Cholelithiasis and findings compatible with acute cholecystitis. 2. Hepatic steatosis.
[2024-06-14] MEDS: metroNIDAZOLE 500MG/100ML 100 ML IV ONE (09:53)
[2024-06-14] MEDS: ceFAZolin 2 GM/D5W50ml 50 ML IV ONE (10:46)
--- NOTE | 2024-06-14 11:21 | DVHHP2 ---
Admitting Diagnosis: Abdominal pain History of Present Illness 49 year old male is complaining of right upper quadrant abdominal pain for one day. Patient also reports nausea and vomiting. Patient states pain feels like previous gallbladder attack. While in the emergency department the patient was evaluated by the provider. Patient will be admitted for further evaluation and treatment. I discussed admission with the patient/family and is in agreement to treatment plan. Allergies: Coded Allergies: NO KNOWN ALLERGIES (Unverified , 01/27/22) Home Meds Active Scripts Buspirone Hcl (Buspirone Hcl) 7.5 Mg Tab, 1 TAB PO BID, #60 TAB 2 Refills Prov:ROSEMARIE SZYMANSKI NP 01/29/22 Clopidogrel Bisulfate (CLOPIDOGREL) 75 Mg Tab, 75 MG PO DAILY for 60 Days, #60 TAB Prov:ROSEMARIE SZYMANSKI RECEIVER/LABORER 01/29/22 Atorvastatin Calcium (ATORVASTATIN CALCIUM) 20 Mg Tab, 80 MG PO HS for 60 Days, #240 TAB Prov:ROSEMARIE SZYMANSKI RECEIVER/LABORER 01/29/22 Aspirin (Aspirin Low Dose) 81 Mg Tab, 81 MG PO DAILY for 60 Days, #60 TAB Prov:ROSEMARIE SZYMANSKI RECEIVER/LABORER 01/29/22 Reported Medications Metoprolol Succinate (Metoprolol Succinate Er) 25 Mg Tab, 1 TAB PO DAILY 06/14/24 Current Medications Current Medications Medications (Trade) Dose Ordered Sig/Melony Route PRN Reason Start Time Stop Time Status Last Admin Morphine Sulfate 4 mg Q4HPRN PRN IV SEVERE PAIN (7-10 PAIN SCALE) 06/14/24 11:30 06/14/24 18:44 Enoxaparin Sodium (Lovenox) 40 mg DAILY SC 06/15/24 10:00 Lactated Ringer's 1,000 ml @ 100 mls/hr Q10H IV 06/14/24 11:30 06/14/24 12:40 Pantoprazole Sodium (Protonix) 40 mg DAILY IV 06/14/24 11:30 06/14/24 12:40 Cefoxitin Sodium 1 gm/Dextrose 50 ml @ 50 mls/hr Q8HR IV 06/14/24 14:00 06/14/24 15:34 Nitroglycerin (Ntrostat Sublingual) 0.4 mg Q5MINP PRN SL FOR CHEST PAIN 06/14/24 11:30 Morphine Sulfate 2 mg Q30M PRN IV FOR CHEST PAIN 06/14/24 11:30 Atorvastatin Calcium (Lipitor) 80 mg HS PO 06/14/24 22:00 Buspirone HCl (Buspar Tablet) 7.5 mg BID PO 06/14/24 22:00 Metoprolol Succinate (Toprol Xl) 25 mg DAILY PO 06/15/24 10:00 Review of Systems Abdominal pain nausea vomiting Vital Signs Vital Signs Date Time Temp Pulse Resp B/P (MAP) Pulse Ox O2 Delivery O2 Flow Rate FiO2 06/14/24 18:44 50 15 119/75 06/14/24 15:45 96 06/14/24 13:45 98.4 98.4 06/14/24 07:19 Room Air* 0 21 Physical Exam General Appearance: alert, no distress HEENT: EOMI, PERRLA, normal external inspect of ears, no icterus, no nasal drainage Neck: no carotid bruit, no jugular venous distention (JVD), no lymphadenopathy Chest: normal thorax Respiratory: clear to auscultation, normal air movement Cardiovascular: regular rate and rhythm, no diastolic murmur, no jugular venous distention (JVD), no rub, no systolic murmur Abdominal: soft, no hepatomegaly, no mass, no splenomegaly, no tenderness Musculoskeletal: no joint tenderness, no swelling Extremities: normal pulses, no calf tenderness, no clubbing, no cyanosis, no edema Skin: no bruising, no jaundice, no rash Neurological: alert, No focal deficit Results Labs Test 06/14/24 16:13 06/14/24 07:05 Range/Units Prothrombin Time 11.3 9.3-11.8 sec Prothrombin Time INR 1.07 0.9-1.15 White Blood Count 12.1 H 4.4-10.8 10^3/uL Red Blood Count 4.33 L 4.5-5.90 10^6/uL Hemoglobin 14.6 13.5-17.5 g/dL Hematocrit 42.5 41.0-53.0 % Mean Corpuscular Volume 98.2 80.0-100.0 fL Mean Corpuscular Hemoglobin 33.7 H 28.0-32.0 pg Mean Corpuscular Hemoglobin Concent 34.3 32.0-36.0 g/dL Red Cell Distribution Width 12.8 11.8-14.3 % Platelet Count 193 140-450 10^3/uL Mean Platelet Volume 8.5 6.9-10.8 fL Neutrophils (%) (Auto) 84.0 H 37.0-80.0 % Lymphocytes (%) (Auto) 11.4 10.0-50.0 % Monocytes (%) (Auto) 3.7 0.0-12.0 % Eosinophils (%) (Auto) 0.4 0.0-7.0 % Basophils (%) (Auto) 0.5 0.0-2.0 % Neutrophils # (Auto) 10.1 H 1.6-8.6 10 ^3/uL Lymphocytes # (Auto) 1.4 0.4-5.4 10 ^3/uL Monocytes # (Auto) 0.4 0-1.3 10 ^3/uL Eosinophils # (Auto) 0 0-0.8 10 ^3/uL Basophils # (Auto) 0.1 0-0.2 10 ^3/uL Nucleated Red Blood Cells 0.1 % Sodium Level 139 136-145 mmol/L Potassium Level 3.6 3.5-5.1 mmol/L Chloride Level 104 98-107 mmol/L Carbon Dioxide Level 26 20-31 mmol/L Anion Gap 9 5-15 Blood Urea Nitrogen 12 9-23 mg/dL Creatinine 0.92 0.700-1.30 mg/dL Glomerular Filtration Rate Calc 102 >90 mL/min BUN/Creatinine Ratio 13.0 10.0-20.0 Serum Glucose 115 H 74-106 mg/dL Lactic Acid Level 1.4 0.4-2.0 mmol/L Calcium Level 9.3 8.7-10.4 mg/dL Total Bilirubin 0.5 0.2-1.0 mg/dL Aspartate Amino Transferase (AST) 22 13-40 U/L Alanine Aminotransferase (ALT) 30 7-40 U/L Alkaline Phosphatase 96 46-116 U/L Total Protein 6.9 5.7-8.2 g/dL Albumin 4.7 3.2-4.8 g/dL Lipase 31 12-53 U/L Primary Diagnosis 1.Acute cholecystitis Surgical consult, medication, monitoring 2.Sinus bradycardia Medication, monitoring 3.Hyperlipidemia medication, monitoring 4.Smoker Smoking cessation 5.History of RI Monitoring Plan discussed with: Patient, Other MAYCO MCINTYRE NP Jun 14, 2024 11:21
[2024-06-14] MEDS ORDERED: NITROGLYCERIN 0.4 MG SL TAB SL PRN (11:30)
[2024-06-14] MEDS ORDERED: MORPHINE SULFATE INJ 2 MG/ml SYRG IV PRN (11:30)
[2024-06-14] MEDS: LACTATED RINGER'S 1,000 ML IV SCH (12:40)
[2024-06-14] MEDS: PANTOPRAZOLE 40 MG/10 ML VIAL INJ IV SCH (12:40)
[2024-06-14] MEDS ORDERED: METO25TA93 PO (15:07)
--- NOTE | 2024-06-14 16:00 | DVH ---
CHEST RADIOGRAPH Indication: preop Technique: Single frontal view of the chest was obtained COMPARISON: XY CHEST PORTABLE on DOS: 03/30/24 FINDINGS: Lines and Tubes: None Lungs: Minimal patchy/linear densities at the lower lungs. Pleura: No effusion. No pneumothorax. Cardiomediastinal contours: Unremarkable Bones: Unremarkable IMPRESSION: Minimal basilar densities are commonly due to atelectasis; however, mild underlying pneumonia or aspi ration are difficult to exclude radiographically.
[2024-06-14 16:42] LABS: INR 1.07 (0.9-1.15); Prothrombin Time 11.3 sec (9.3-11.8)
--- NOTE | 2024-06-14 17:27 | DVHINCON2 ---
Date of service: Jun 14, 2024 Allergies: Coded Allergies: NO KNOWN ALLERGIES (Unverified , 01/27/22) Home Meds Active Scripts Buspirone Hcl (Buspirone Hcl) 7.5 Mg Tab, 1 TAB PO BID, #60 TAB 2 Refills Prov:ROSEMARIE SZYMANSKI [employer] SUPERVISOR 01/29/22 Clopidogrel Bisulfate (CLOPIDOGREL) 75 Mg Tab, 75 MG PO DAILY for 60 Days, #60 TAB Prov:ROSEMARIE SZYMANSKI [employer] E[employer] SUPERVISOR 01/29/22 Atorvastatin Calcium (ATORVASTATIN CALCIUM) 20 Mg Tab, 80 MG PO HS for 60 Days, #240 TAB Prov:ROSEMARIE SZYMANSKI [employer] EQUIPMENT SUPERVISOR 01/29/22 Aspirin (Aspirin Low Dose) 81 Mg Tab, 81 MG PO DAILY for 60 Days, #60 TAB Prov:ROSEMARIE SZYMANSKI [employer] EQUIP[employer] SUPERVISOR 01/29/22 Reported Medications Metoprolol Succinate (Metoprolol Succinate Er) 25 Mg Tab, 1 TAB PO DAILY 06/14/24 Current Medications Current Medications Medications (Trade) Dose Ordered Sig/Melony Route PRN Reason Start Time Stop Time Status Last Admin Morphine Sulfate 4 mg Q4HPRN PRN IV SEVERE PAIN (7-10 PAIN SCALE) 06/14/24 11:30 Enoxaparin Sodium (Lovenox) 40 mg DAILY SC 06/15/24 10:00 Lactated Ringer's 1,000 ml @ 100 mls/hr Q10H IV 06/14/24 11:30 06/14/24 12:40 Pantoprazole Sodium (Protonix) 40 mg DAILY IV 06/14/24 11:30 06/14/24 12:40 Cefoxitin Sodium 1 gm/Dextrose 50 ml @ 50 mls/hr Q8HR IV 06/14/24 14:00 06/14/24 15:34 Nitroglycerin (Ntrostat Sublingual) 0.4 mg Q5MINP PRN SL FOR CHEST PAIN 06/14/24 11:30 Morphine Sulfate 2 mg Q30M PRN IV FOR CHEST PAIN 06/14/24 11:30 Atorvastatin Calcium (Lipitor) 80 mg HS PO 06/14/24 22:00 Buspirone HCl (Buspar Tablet) 7.5 mg BID PO 06/14/24 22:00 Metoprolol Succinate (Toprol Xl) 25 mg DAILY PO 06/15/24 10:00 Vital Signs Vital Signs Date Time Temp Pulse Resp B/P (MAP) Pulse Ox O2 Delivery O2 Flow Rate FiO2 06/14/24 15:45 50 15 115/73 (87) 96 06/14/24 13:45 98.4 98.4 06/14/24 07:19 Room Air* 0 21 Labs/Diagnostic Data Labs Test 06/14/24 16:13 06/14/24 07:05 Range/Units Prothrombin Time 11.3 9.3-11.8 sec Prothrombin Time INR 1.07 0.9-1.15 White Blood Count 12.1 H 4.4-10.8 10^3/uL Red Blood Count 4.33 L 4.5-5.90 10^6/uL Hemoglobin 14.6 13.5-17.5 g/dL Hematocrit 42.5 41.0-53.0 % Mean Corpuscular Volume 98.2 80.0-100.0 fL Mean Corpuscular Hemoglobin 33.7 H 28.0-32.0 pg Mean Corpuscular Hemoglobin Concent 34.3 32.0-36.0 g/dL Red Cell Distribution Width 12.8 11.8-14.3 % Platelet Count 193 140-450 10^3/uL Mean Platelet Volume 8.5 6.9-10.8 fL Neutrophils (%) (Auto) 84.0 H 37.0-80.0 % Lymphocytes (%) (Auto) 11.4 10.0-50.0 % Monocytes (%) (Auto) 3.7 0.0-12.0 % Eosinophils (%) (Auto) 0.4 0.0-7.0 % Basophils (%) (Auto) 0.5 0.0-2.0 % Neutrophils # (Auto) 10.1 H 1.6-8.6 10 ^3/uL Lymphocytes # (Auto) 1.4 0.4-5.4 10 ^3/uL Monocytes # (Auto) 0.4 0-1.3 10 ^3/uL Eosinophils # (Auto) 0 0-0.8 10 ^3/uL Basophils # (Auto) 0.1 0-0.2 10 ^3/uL Nucleated Red Blood Cells 0.1 % Sodium Level 139 136-145 mmol/L Potassium Level 3.6 3.5-5.1 mmol/L Chloride Level 104 98-107 mmol/L Carbon Dioxide Level 26 20-31 mmol/L Anion Gap 9 5-15 Blood Urea Nitrogen 12 9-23 mg/dL Creatinine 0.92 0.700-1.30 mg/dL Glomerular Filtration Rate Calc 102 >90 mL/min BUN/Creatinine Ratio 13.0 10.0-20.0 Serum Glucose 115 H 74-106 mg/dL Lactic Acid Level 1.4 0.4-2.0 mmol/L Calcium Level 9.3 8.7-10.4 mg/dL Total Bilirubin 0.5 0.2-1.0 mg/dL Aspartate Amino Transferase (AST) 22 13-40 U/L Alanine Aminotransferase (ALT) 30 7-40 U/L Alkaline Phosphatase 96 46-116 U/L Total Protein 6.9 5.7-8.2 g/dL Albumin 4.7 3.2-4.8 g/dL Lipase 31 12-53 U/L Assessment [id number] R/O AC CHOLECYSTITIS NEEDS CARDIAC CLEARANCE CONSIDER LAP/OPEN CHOLECYSTECTOMY BASED ON ONGOING EVAL Plan discussed with: Patient EVANGELINA GEORGE MD Jun 14, 2024 17:27
[2024-06-14] MEDS: MORPHINE SULFATE INJ 2 MG/ml SYRG IV PRN (18:44)
--- NOTE | 2024-06-14 20:16 | DVHINCON2 ---
Date of service: Jun 14, 2024 Referring Physician Tarah Lim Reason for Consultation Right upper quadrant pain possible acute cholecystitis History of Present Illness 49-year-old male presents with a chief complaint of abdominal pain x onset last night with associated nausea and vomiting. Patient reports that his pain is localized to his RUQ, describes as sharp, rates his pain a 10/10, and feels like his previous gallbladder attack. Patient also reports intermittent vomiting with constant nausea. Patient denies any alcohol or drugs on board. Patient was mildly hypertensive in triage at 136/87. No other symptoms or modifying factors present at this time. Past Medical History CAD; CT Past Surgical History Cardiac stent 2 yrs ago Allergies: Coded Allergies: NO KNOWN ALLERGIES (Unverified , 01/27/22) Home Meds Active Scripts Buspirone Hcl (Buspirone Hcl) 7.5 Mg Tab, 1 TAB PO BID, #60 TAB 2 Refills Prov:ROSEMARIE SZYMANSKI NP 01/29/22 Clopidogrel Bisulfate (CLOPIDOGREL) 75 Mg Tab, 75 MG PO DAILY for 60 Days, #60 TAB Prov:ROSEMARIE SZYMANSKI TOWBOAT OPERATOR 01/29/22 Atorvastatin Calcium (ATORVASTATIN CALCIUM) 20 Mg Tab, 80 MG PO HS for 60 Days, #240 TAB Prov:ROSEMARIE SZYMANSKI TOWBOAT OPERATOR 01/29/22 Aspirin (Aspirin Low Dose) 81 Mg Tab, 81 MG PO DAILY for 60 Days, #60 TAB Prov:ROSEMARIE SZYMANSKI TOWBOAT OPERATOR 01/29/22 Reported Medications Metoprolol Succinate (Metoprolol Succinate Er) 25 Mg Tab, 1 TAB PO DAILY 06/14/24 Current Medications Current Medications Medications (Trade) Dose Ordered Sig/Melony Route PRN Reason Start Time Stop Time Status Last Admin Morphine Sulfate 4 mg Q4HPRN PRN IV SEVERE PAIN (7-10 PAIN SCALE) 06/14/24 11:30 06/14/24 18:44 Enoxaparin Sodium (Lovenox) 40 mg DAILY SC 06/15/24 10:00 Lactated Ringer's 1,000 ml @ 100 mls/hr Q10H IV 06/14/24 11:30 06/14/24 12:40 Pantoprazole Sodium (Protonix) 40 mg DAILY IV 06/14/24 11:30 06/14/24 12:40 Cefoxitin Sodium 1 gm/Dextrose 50 ml @ 50 mls/hr Q8HR IV 06/14/24 14:00 06/14/24 15:34 Nitroglycerin (Ntrostat Sublingual) 0.4 mg Q5MINP PRN SL FOR CHEST PAIN 06/14/24 11:30 Morphine Sulfate 2 mg Q30M PRN IV FOR CHEST PAIN 06/14/24 11:30 Atorvastatin Calcium (Lipitor) 80 mg HS PO 06/14/24 22:00 Buspirone HCl (Buspar Tablet) 7.5 mg BID PO 06/14/24 22:00 Metoprolol Succinate (Toprol Xl) 25 mg DAILY PO 06/15/24 10:00 Vital Signs Vital Signs Date Time Temp Pulse Resp B/P (MAP) Pulse Ox O2 Delivery O2 Flow Rate FiO2 06/14/24 18:44 50 15 119/75 06/14/24 15:45 96 06/14/24 13:45 98.4 98.4 06/14/24 07:19 Room Air* 0 21 Physical Exam General Appearance: Mild distress HEENT: Normal ENT Inspection, Pharynx Normal, TMs Normal Respiratory: Chest Non-Tender, Lungs Clear, No Accessory Muscle Use, No Respiratory Distress, Normal Breath Sounds Cardiovascular: No Edema, No JVD, No Murmur, No Gallop, Normal Peripheral Pulses, Regular Rate/Rhythm Gastrointestinal: No Organomegaly, No Pulsatile Mass, Normal Bowel Sounds, RUQ Tenderness;soft Extremities: No calf tenderness, Normal capillary refill, Normal inspection, Normal range of motion, Non-tender, No pedal edema Neurologic: Alert, counseling aide II-XII nml as Tested, No Motor Deficits, Normal Affect, Normal Mood, No Sensory Deficits Labs/Diagnostic Data Colonoscope liver enzyme handle machine operator you Labs Test 06/14/24 16:13 06/14/24 07:05 Range/Units Prothrombin Time 11.3 9.3-11.8 sec Prothrombin Time INR 1.07 0.9-1.15 White Blood Count 12.1 H 4.4-10.8 10^3/uL Red Blood Count 4.33 L 4.5-5.90 10^6/uL Hemoglobin 14.6 13.5-17.5 g/dL Hematocrit 42.5 41.0-53.0 % Mean Corpuscular Volume 98.2 80.0-100.0 fL Mean Corpuscular Hemoglobin 33.7 H 28.0-32.0 pg Mean Corpuscular Hemoglobin Concent 34.3 32.0-36.0 g/dL Red Cell Distribution Width 12.8 11.8-14.3 % Platelet Count 193 140-450 10^3/uL Mean Platelet Volume 8.5 6.9-10.8 fL Neutrophils (%) (Auto) 84.0 H 37.0-80.0 % Lymphocytes (%) (Auto) 11.4 10.0-50.0 % Monocytes (%) (Auto) 3.7 0.0-12.0 % Eosinophils (%) (Auto) 0.4 0.0-7.0 % Basophils (%) (Auto) 0.5 0.0-2.0 % Neutrophils # (Auto) 10.1 H 1.6-8.6 10 ^3/uL Lymphocytes # (Auto) 1.4 0.4-5.4 10 ^3/uL Monocytes # (Auto) 0.4 0-1.3 10 ^3/uL Eosinophils # (Auto) 0 0-0.8 10 ^3/uL Basophils # (Auto) 0.1 0-0.2 10 ^3/uL Nucleated Red Blood Cells 0.1 % Sodium Level 139 136-145 mmol/L Potassium Level 3.6 3.5-5.1 mmol/L Chloride Level 104 98-107 mmol/L Carbon Dioxide Level 26 20-31 mmol/L Anion Gap 9 5-15 Blood Urea Nitrogen 12 9-23 mg/dL Creatinine 0.92 0.700-1.30 mg/dL Glomerular Filtration Rate Calc 102 >90 mL/min BUN/Creatinine Ratio 13.0 10.0-20.0 Serum Glucose 115 H 74-106 mg/dL Lactic Acid Level 1.4 0.4-2.0 mmol/L Calcium Level 9.3 8.7-10.4 mg/dL Total Bilirubin 0.5 0.2-1.0 mg/dL Aspartate Amino Transferase (AST) 22 13-40 U/L Alanine Aminotransferase (ALT) 30 7-40 U/L Alkaline Phosphatase 96 46-116 U/L Total Protein 6.9 5.7-8.2 g/dL Albumin 4.7 3.2-4.8 g/dL Lipase 31 12-53 U/L RUQ USG IMPRESSION: 1. Cholelithiasis and findings compatible with acute cholecystitis. 2. Hepatic steatosis. Problems(with codes): (1) Acute cholecystitis (2) Cholelithiasis (3) Right upper quadrant pain (4) Projectile vomiting with nausea Plan/Recommendation Plan NPO except for ice chips IV fluid hydration IV antibiotics Surgical consult appreciated Patient is awaiting cardiac clearance Monitor labs Plan discussed with: Other (Dr Antoine Garcia) ELLY GARCIA MD Jun 14, 2024 20:16
[2024-06-14 21:00] VITALS: BP 132/85; PULSE 56; RESP 16; TEMP 98.3; O2SAT 97
[2024-06-14] MEDS: busPIRone HCL 10 MG TAB PO SCH (21:59)
[2024-06-14] MEDS: ATORVASTATIN 20 MG TAB PO SCH (21:59)
[2024-06-14 22:03] VITALS: BP 130/80; PULSE 62; RESP 18; TEMP 98.6; O2SAT 97
--- NOTE | 2024-06-14 22:36 | DVHINCON2 ---
DATE OF CONSULTATION: 06/14/2024 HISTORY OF PRESENT ILLNESS: This patient is 49 years old, coming in with right upper quadrant pain, nausea and vomiting. No hematemesis or melena. No bleeding per rectum. PAST MEDICAL HISTORY: Cardiac attack, heart attack 2 years ago. PAST SURGICAL HISTORY: Had a stent placement done. No other surgical history. PHYSICAL EXAMINATION: VITAL SIGNS: Afebrile, stable signs. HEENT: With no evidence of pallor, cyanosis, or jaundice. NECK: Supple, nontender with no thyromegaly, lymphadenopathy. CHEST AND LUNGS: Clear. HEART: Within normal limits. ABDOMEN: Soft, tender in the right upper quadrant with minimal rebound. EXTREMITIES: Unremarkable. NEUROLOGIC: Intact. CLINICAL IMPRESSION: Rule out acute cholecystitis. PLAN: To consider laparoscopic, possible open cholecystectomy. Benefits discussed and a consent obtained. He needs cardiac clearance. MD BERLIN Hdez/GAURAV TID: [id number] RECEIPT: [id number] cc: Tarah Lim
[2024-06-15] VITALS (8 sets, daily range): BP systolic 119–142; BP diastolic 61–81; PULSE 51–82; RESP 16–20; TEMP 97.6–98.6; O2SAT 95–97
[2024-06-15] MEDS: HYDROmorphone HCL 2 MG/ML VL/or syr IV ONE (05:02)
[2024-06-15 07:04] LABS: Basophils # (auto) 0 10 ^3/uL (0-0.2); Basophils % (auto) 0.3 % (0.0-2.0); Eosinophils # (auto) 0.1 10 ^3/uL (0-0.8); Eosinophils % (auto) 0.4 % (0.0-7.0); Hematocrit 42.5 % (41.0-53.0); Hemoglobin 14.6 g/dL (13.5-17.5); Lymphocytes % (auto) 14.7 % (10.0-50.0); Mean Corpuscular Hemoglobin 33.6 pg (28.0-32.0); Mean Corpuscular Hgb Conc. 34.3 g/dL (32.0-36.0); Monocytes # (auto) 1.1 10 ^3/uL (0-1.3); Monocytes % (auto) 7.9 % (0.0-12.0); Neutrophils # (auto) 10.5 10 ^3/uL (1.6-8.6); Neutrophils % (auto) 76.7 % (37.0-80.0); Platelet Count (auto) 213 10^3/uL (140-450); Red Blood Cells 4.34 10^6/uL (4.5-5.90); Red Cell Distribution Width 12.9 % (11.8-14.3); White Blood Cell 13.7 10^3/uL (4.4-10.8)
[2024-06-15 07:14] LABS: Alanine Aminotransferase 29 U/L (7-40); Albumin 4.6 g/dL (3.2-4.8); Alkaline Phosphatase 79 U/L (46-116); Anion Gap 9 (5-15); Aspartate Aminotransferase 18 U/L (13-40); BUN/Creatinine Ratio 11.4 (10.0-20.0); Calcium 9.9 mg/dL (8.7-10.4); Carbon Dioxide 27 mmol/L (20-31); Chloride 103 mmol/L (98-107); Glucose 102 mg/dL (74-106); Potassium 4.4 mmol/L (3.5-5.1); Sodium 139 mmol/L (136-145)
[2024-06-15 07:15] LABS: Total Protein 6.8 g/dL (5.7-8.2)
[2024-06-15 07:17] LABS: Blood Urea Nitrogen 9 mg/dL (9-23)
[2024-06-15] MEDS: HYDROcodone-ACET 5/325MG TAB PO PRN (08:39)
[2024-06-15] MEDS: ENOXAPARIN SOD 40 MG/0.4 ML SYRINGE SC SCH (08:40)
[2024-06-15] MEDS: METOPROLOL SUCCINATE XL 50 MG TAB PO SCH (08:40)
[2024-06-15 08:53] LABS: Hepatitis B Surface Antigen Negative (Negative)
[2024-06-15 09:13] LABS: Hepatitis C Antibody Negative (Negative)
--- NOTE | 2024-06-15 12:15 | DVHPN2 ---
Progress Note - Dictate Date Seen: Jun 15, 2024 Medical Necessity Reason Pt with a Central, PICC or Fol: No vital signs Vital Sign Date Time Temp Pulse Resp B/P (MAP) Pulse Ox O2 Delivery O2 Flow Rate FiO2 06/15/24 09:47 54 Room Air* 0 21 06/15/24 09:00 97.8 18 129/80 (96) 97 97.8 Total Intake and Output 06/14/24 06/14/24 06/15/24 15:00 23:00 07:00 Intake Total 2300 ml 350 ml Balance 2300 ml 350 ml medications Current Medications Medications Dose Ordered Sig/Melony Route Start Time Stop Time Status Last Admin Dose Admin Enoxaparin Sodium 40 mg DAILY SC 06/15/24 10:00 06/15/24 08:40 40 MG Lactated Ringer's 1,000 ml @ 100 mls/hr Q10H IV 06/14/24 11:30 06/14/24 21:50 100 MLS/HR Pantoprazole Sodium 40 mg DAILY IV 06/14/24 11:30 06/15/24 08:39 40 MG Cefoxitin Sodium 1 gm/Dextrose 50 ml @ 50 mls/hr Q8HR IV 06/14/24 14:00 06/15/24 08:39 50 MLS/HR Nitroglycerin 0.4 mg Q5MINP PRN SL 06/14/24 11:30 Morphine Sulfate 2 mg Q30M PRN IV 06/14/24 11:30 Atorvastatin Calcium 80 mg HS PO 06/14/24 22:00 Buspirone HCl 7.5 mg BID PO 06/14/24 22:00 Metoprolol Succinate 25 mg DAILY PO 06/15/24 10:00 Hydromorphone HCl 1 mg Q4HPRN PRN IV 06/15/24 07:15 Acetaminophen/ Hydrocodone Bitart 1 tab Q6HPRN PRN PO 06/15/24 07:15 06/15/24 08:39 1 TAB objective General Appearance: alert, no distress HEENT: EOMI, PERRLA, normal external inspect of ears, no icterus, no nasal drainage Neck: no carotid bruit, no jugular venous distention (JVD), no lymphadenopathy Chest: normal thorax Respiratory: clear to auscultation, normal air movement Cardiovascular: regular rate and rhythm, no diastolic murmur, no jugular venous distention (JVD), no rub, no systolic murmur Abdominal: soft, no hepatomegaly, no mass, no splenomegaly, no tenderness Genitourinary: grossly normal external Musculoskeletal: no joint tenderness, no swelling Extremities: normal pulses, no calf tenderness, no clubbing, no cyanosis, no edema Skin: no bruising, no jaundice, no rash Neurological: alert, No focal deficit laboratory and microbiology Laboratory Tests 06/15/24 06:00 Test 06/15/24 06:00 Range/Units Serum Glucose 102 74-106 mg/dL Problem List 1.Acute cholecystitis Surgical consult, medication, monitoring 2.Sinus bradycardia Medication, monitoring 3.Hyperlipidemia medication, monitoring 4.Smoker Smoking cessation 5.History of [place] Monitoring Assessment/Plan Subjective: Patient is awake and alert. Objective: Patient is pending evaluation by GI and general surgery. Patient was admitted for acute abdominal pain related to acute cholecystitis. Patient had an AR with stent placement last year with Dr. Mart. I did speak with cardiology. Plan: Continue I.V. fluids. PRN pain medication. Smoking cessation and nicotine patch as needed. Continue antibiotics with cefoxitin. General surgery evaluation. Plan discussed with: Patient, Other MAYCO MCINTYRE NP Jun 15, 2024 12:15
[2024-06-15] MEDS: HYDROmorphone HCL 2 MG/ML VL/or syr IV PRN (13:40)
--- NOTE | 2024-06-15 14:12 | DVHINCON2 ---
Date of service: Jun 15, 2024 History of Present Illness 49 yo M with hx of cad s/p PCI for inferior stemi with RCA stent, htn, obesity admitted for abd pain and possible need for lap torri. pt seen by general davis leroy. pt had pci with me 2021 but doesnt see cards anymore. hes taking his DAPT and statin. no chest pain Past Medical History reviewed Family History: Hypercholesterolemia G8 MOTHER Allergies: Coded Allergies: NO KNOWN ALLERGIES (Unverified , 01/27/22) Home Meds Active Scripts Clopidogrel Bisulfate (CLOPIDOGREL) 75 Mg Tab, 75 MG PO DAILY for 60 Days, #60 TAB Prov:ROSEMARIE SZYMANSKI ENVIRONMENTAL MARKETING REPRESENTATIVE 01/29/22 Atorvastatin Calcium (ATORVASTATIN CALCIUM) 20 Mg Tab, 80 MG PO HS for 60 Days, #240 TAB Prov:ROSEMARIE SZYMANSKI ENVIRONMENTAL MARKETING REPRESENTATIVE 01/29/22 Reported Medications Metoprolol Succinate (Metoprolol Succinate Er) 25 Mg Tab, 1 TAB PO DAILY 06/14/24 Current Medications Current Medications Medications (Trade) Dose Ordered Sig/Melony Route PRN Reason Start Time Stop Time Status Last Admin Enoxaparin Sodium (Lovenox) 40 mg DAILY SC 06/15/24 10:00 06/15/24 08:40 Atorvastatin Calcium (Lipitor) 80 mg HS PO 06/14/24 22:00 Buspirone HCl (Buspar Tablet) 7.5 mg BID PO 06/14/24 22:00 Metoprolol Succinate (Toprol Xl) 25 mg DAILY PO 06/15/24 10:00 Hydromorphone HCl (Dilaudid Injection) 1 mg Q4HPRN PRN IV PAIN SCALE 7 THRU 10 06/15/24 07:15 06/15/24 13:40 Acetaminophen/ Hydrocodone Bitart ([place] 5/325MG Tab) 1 tab Q6HPRN PRN PO MODERATE PAIN (4-6 PAIN SCALE) 06/15/24 07:15 06/15/24 08:39 Review of Systems 10 pt ros otherwise negative Vital Signs Vital Signs Date Time Temp Pulse Resp B/P (MAP) Pulse Ox O2 Delivery O2 Flow Rate FiO2 06/15/24 13:40 52 19 139/73 06/15/24 13:34 97.6 96 97.6 06/15/24 09:47 Room Air* 0 21 Physical Exam nad s1 s2 rrr ctab soft nt/nd no edema Labs/Diagnostic Data Labs Test 06/15/24 06:00 06/14/24 16:13 06/14/24 07:05 Range/Units White Blood Count 13.7 H 4.4-10.8 10^3/uL Red Blood Count 4.34 L 4.5-5.90 10^6/uL Hemoglobin 14.6 13.5-17.5 g/dL Hematocrit 42.5 41.0-53.0 % Mean Corpuscular Volume 98.0 80.0-100.0 fL Mean Corpuscular Hemoglobin 33.6 H 28.0-32.0 pg Mean Corpuscular Hemoglobin Concent 34.3 32.0-36.0 g/dL Red Cell Distribution Width 12.9 11.8-14.3 % Platelet Count 213 140-450 10^3/uL Mean Platelet Volume 9.1 6.9-10.8 fL Neutrophils (%) (Auto) 76.7 37.0-80.0 % Lymphocytes (%) (Auto) 14.7 10.0-50.0 % Monocytes (%) (Auto) 7.9 0.0-12.0 % Eosinophils (%) (Auto) 0.4 0.0-7.0 % Basophils (%) (Auto) 0.3 0.0-2.0 % Neutrophils # (Auto) 10.5 H 1.6-8.6 10 ^3/uL Lymphocytes # (Auto) 2.0 0.4-5.4 10 ^3/uL Monocytes # (Auto) 1.1 0-1.3 10 ^3/uL Eosinophils # (Auto) 0.1 0-0.8 10 ^3/uL Basophils # (Auto) 0 0-0.2 10 ^3/uL Nucleated Red Blood Cells 0.0 % Sodium Level 139 136-145 mmol/L Potassium Level 4.4 3.5-5.1 mmol/L Chloride Level 103 98-107 mmol/L Carbon Dioxide Level 27 20-31 mmol/L Anion Gap 9 5-15 Blood Urea Nitrogen 9 9-23 mg/dL Creatinine 0.79 0.700-1.30 mg/dL Glomerular Filtration Rate Calc 109 >90 mL/min BUN/Creatinine Ratio 11.4 10.0-20.0 Serum Glucose 102 74-106 mg/dL Calcium Level 9.9 8.7-10.4 mg/dL Total Bilirubin 1.0 0.2-1.0 mg/dL Aspartate Amino Transferase (AST) 18 13-40 U/L Alanine Aminotransferase (ALT) 29 7-40 U/L Alkaline Phosphatase 79 46-116 U/L Total Protein 6.8 5.7-8.2 g/dL Albumin 4.6 3.2-4.8 g/dL Prothrombin Time 11.3 9.3-11.8 sec Prothrombin Time INR 1.07 0.9-1.15 Hepatitis B Surface Antigen Negative Negative Hepatitis C Antibody Negative Negative Lactic Acid Level 1.4 0.4-2.0 mmol/L Lipase 31 12-53 U/L Assessment preop eval r/o acute torri hx of cad s/p pci for stemi htn HL Plan/Recommendation hold plavix pt can walk several blocks no problem check echo and ecg , ecg shows SR inferior ME old as expected will risk stratify following echo, no active cv complaints Plan discussed with: Patient MEMO KILGORE MD Jun 15, 2024 14:12
[2024-06-15 14:18] LABS: Urine Bacteria None Seen /hpf (None Seen)
[2024-06-15 14:44] LABS: Urine Blood 1+ /uL (Negative); Urine Clarity Clear (Clear); Urine Color Light-Yellow (Yellow); Urine Protein, UAD Negative (Negative); Urine Specific Gravity 1.022 (1.001-1.035); Urine Squamous Epithelial Cell None Seen /hpf (<5); Urine Urobilinogen Normal (Negative); Urine WBC 1 /HPF (0-3); Urine pH 6.5 (5.0-9.0)
--- NOTE | 2024-06-15 15:16 | DVHPN2 ---
Progress Note Date Seen: Jun 15, 2024 Resident Creating Document: CHRISSY HILARIO RESIDENT Medical Necessity Reason Pt with a Central, PICC or Fol: No Subjective Review of Systems Patient was seen and examined on the bedside. He is alert oriented x3. Complaint of severe right upper quadrant pain with intermittent nausea and 2 episodes of vomiting. Patient is NPO and waiting for cardiac clearance for possible laparoscopic/open cholecystectomy . Objective vital signs Vital Sign Date Time Temp Pulse Resp B/P (MAP) Pulse Ox O2 Delivery O2 Flow Rate FiO2 06/15/24 14:26 60 15 138/72 06/15/24 13:34 97.6 96 97.6 06/15/24 09:47 Room Air* 0 21 Total Intake and Output 06/14/24 06/14/24 06/15/24 15:00 23:00 07:00 Intake Total 2300 ml 350 ml Balance 2300 ml 350 ml medications Current Medications Medications Dose Ordered Sig/Melony Route Start Time Stop Time Status Last Admin Dose Admin Enoxaparin Sodium 40 mg DAILY SC 06/15/24 10:00 06/15/24 08:40 40 MG Lactated Ringer's 1,000 ml @ 100 mls/hr Q10H IV 06/14/24 11:30 06/14/24 21:50 100 MLS/HR Pantoprazole Sodium 40 mg DAILY IV 06/14/24 11:30 06/15/24 08:39 40 MG Cefoxitin Sodium 1 gm/Dextrose 50 ml @ 50 mls/hr Q8HR IV 06/14/24 14:00 06/15/24 15:01 50 MLS/HR Nitroglycerin 0.4 mg Q5MINP PRN SL 06/14/24 11:30 Morphine Sulfate 2 mg Q30M PRN IV 06/14/24 11:30 Atorvastatin Calcium 80 mg HS PO 06/14/24 22:00 Buspirone HCl 7.5 mg BID PO 06/14/24 22:00 Metoprolol Succinate 25 mg DAILY PO 06/15/24 10:00 Hydromorphone HCl 1 mg Q4HPRN PRN IV 06/15/24 07:15 06/15/24 13:40 1 MG Acetaminophen/ Hydrocodone Bitart 1 tab Q6HPRN PRN PO 06/15/24 07:15 2/10/25 08:39 1 TAB Examination Physical examination: General Appearance: Alert, Oriented X3, Cooperative, mild distress HEENT: Atraumatic, PERRLA, EOMI, Mucous membrane moist/pink Respiratory: Clear to auscultation, Normal air movement Cardiovascular: Regular rate, Normal S1, Normal S2, No murmurs, no chest wall tenderness Abdominal: Normal bowel sounds, jordan's sign present, No hepatospenomegaly, No masses Extremities: No clubbing, No cyanosis, No edema, Normal pulses, No tenderness/swelling Skin: No rashes, No breakdown, No significant lesion Neuro: Normal gait, Normal speech, Strength at 5/5 X4 ext, Normal tone, Sensation intact, grossly intact cranial nerves Psych/Mental Status: Mental status NL, Mood NL laboratory and microbiology Laboratory Tests 06/15/24 06:00 Test 06/15/24 06:00 Range/Units Serum Glucose 102 74-106 mg/dL Labs and/or images reviewed: Labs reviewed by me, Image(s) reviewed by me Problem List/Assessment/Plan Problem List/Assessment/Plan Assessment: # intractable abdominal pain, nausea and vomiting likely due to acute cholecystitis # Acute cholecystitis # Cholelithiasis # History of CAD, s/p PTCA x1 stent Plan: - NPO except ice chips - Continue IV lactated ringer 1000 mL at 100 mL/hours - Continue Pain medication and IV antibiotic as per primary team - Appreciated surgical consultation - Awaiting cardiac clearance for possible laparoscopic /open cholecystectomy - Monitor vitals and labs. Plan discussed with Plan discussed with: Patient, Other CHRISSY HILARIO RESIDENT Jun 15, 2024 15:16
--- NOTE | 2024-06-15 15:29 | ECG ---
[facility] Test Date: 2024-06-14 Test Time: 06:23:29 Pat Name: JANICE GRIFFIN Department: ER Room: 0271T Gender: M Flame Gouger: FRANTZ : 1975 Requested By: JACQUELYN AMIN Order Number: [id number] Reading MD: Raymon Gross Measurements Intervals [place] Rate: 54 P: 61 GA: 122 QRS: -26 QRSD: 107 T: -35 QT: 440 QTc: 417 Interpretive Statements Sinus rhythm Inferior infarct, age indeterminate Electronically Signed On 06-18-2024 10:32:28 PST by Raymon Gross Please click the below link to view image of tracing.
--- NOTE | 2024-06-15 20:22 | DVHPN2 ---
Progress Note Date Seen: Jun 15, 2024 Medical Necessity Reason Pt with a Central, PICC or Fol: No Objective vital signs Vital Sign Date Time Temp Pulse Resp B/P (MAP) Pulse Ox O2 Delivery O2 Flow Rate FiO2 06/15/24 17:12 97.8 82 17 126/61 (82) 95 97.8 06/15/24 09:47 Room Air* 0 21 Total Intake and Output 06/14/24 06/14/24 06/15/24 15:00 23:00 07:00 Intake Total 2300 ml 350 ml Balance 2300 ml 350 ml medications Current Medications Medications Dose Ordered Sig/Melony Route Start Time Stop Time Status Last Admin Dose Admin Enoxaparin Sodium 40 mg DAILY SC 06/15/24 10:00 06/15/24 08:40 40 MG Lactated Ringer's 1,000 ml @ 100 mls/hr Q10H IV 06/14/24 11:30 06/14/24 21:50 100 MLS/HR Pantoprazole Sodium 40 mg DAILY IV 06/14/24 11:30 06/15/24 08:39 40 MG Cefoxitin Sodium 1 gm/Dextrose 50 ml @ 50 mls/hr Q8HR IV 06/14/24 14:00 06/15/24 15:01 50 MLS/HR Nitroglycerin 0.4 mg Q5MINP PRN SL 06/14/24 11:30 Morphine Sulfate 2 mg Q30M PRN IV 06/14/24 11:30 Atorvastatin Calcium 80 mg HS PO 06/14/24 22:00 Buspirone HCl 7.5 mg BID PO 06/14/24 22:00 Metoprolol Succinate 25 mg DAILY PO 06/15/24 10:00 Hydromorphone HCl 1 mg Q4HPRN PRN IV 06/15/24 07:15 06/15/24 13:40 1 MG Acetaminophen/ Hydrocodone Bitart 1 tab Q6HPRN PRN PO 06/15/24 07:15 06/15/24 08:39 1 TAB Nicotine 1 patch DAILY TD 06/16/24 10:00 laboratory and microbiology Laboratory Tests 06/15/24 06:00 Test 06/15/24 06:00 Range/Units Serum Glucose 102 74-106 mg/dL Problem List/Assessment/Plan Problem List/Assessment/Plan AFEBRILE VSS ABD SOFT TENDER RUQ CLEARED BY CARDIOLOGY PLAN FOR LAP/OPEN CHOLECYSTECTOMY AM Plan discussed with: Patient EVANGELINA GEORGE MD Jun 15, 2024 20:22
[2024-06-16] VITALS (8 sets, daily range): BP systolic 107–127; BP diastolic 67–83; PULSE 67–89; RESP 15–18; TEMP 97.8–99; O2SAT 91–98
[2024-06-16] MEDS: ceFAZolin 2 GM/D5W100ml 100 ML IV ONE (07:05)
[2024-06-16] MEDS ORDERED: MEPERIDINE HCL (25 MG/ML) 1ML VIAL ONE ×2 (08:01→10:04)
[2024-06-16] MEDS ORDERED: fentaNYL CITRATE 100 MCG/2 ML VL ONE (08:01)
[2024-06-16] MEDS ORDERED: MIDAZOLAM HCL 2MG/2ML 2ml VIAL (1mg/ml) ONE (08:01)
[2024-06-16] MEDS: SUCCINYLCHOLINE CHLORIDE 20 MG/ML 10ML VIAL IV ONE (08:04)
[2024-06-16] MEDS ORDERED: DexAMETHasone SOD PHOS 10MG/1ML VIAL INJ ONE (08:37)
[2024-06-16] MEDS ORDERED: ROCURONIUM 10MG/ML 10ML VIAL IV ONE (08:37)
[2024-06-16] MEDS ORDERED: PROPOFOL 10 MG/ML 20 ML IV ONE (08:37)
[2024-06-16] MEDS ORDERED: ETOMIDATE (2MG/ML) 20ML VIAL IV ONE (08:38)
[2024-06-16] MEDS ORDERED: MORPHINE SULFATE 4 MG/ML SYR/VIAL IV PRN (08:45)
[2024-06-16] MEDS ORDERED: MIDAZOLAM HCL 2MG/2ML 2ml VIAL (1mg/ml) IV PRN (08:45)
[2024-06-16] MEDS ORDERED: ePHEDrine SULFATE 50 MG/ML AMP IV PRN (08:45)
[2024-06-16] MEDS ORDERED: hydrALAZINE HCL 20 MG/ML VL IV PRN (08:45)
[2024-06-16] MEDS: KETOROLAC TROMETH 30 MG/ML 1ML VIAL IV ONE (08:45)
[2024-06-16] MEDS: ONDANSETRON HCL 4 MG/2 ML VIAL IV ONE (08:45)
[2024-06-16] MEDS ORDERED: ONDANSETRON HCL 4 MG/2 ML VIAL ONE (08:54)
--- NOTE | 2024-06-16 09:44 | DVHPN2 ---
Progress Note - Dictate Date Seen: Jun 16, 2024 Medical Necessity Reason Pt with a Central, PICC or Fol: No vital signs Vital Sign Date Time Temp Pulse Resp B/P (MAP) Pulse Ox O2 Delivery O2 Flow Rate FiO2 06/16/24 05:00 98.6 89 16 115/76 (89) 98 98.6 06/15/24 09:47 Room Air* 0 21 Total Intake and Output 06/15/24 06/15/24 06/16/24 15:00 23:00 07:00 Intake Total 50 ml 50 ml Balance 50 ml 50 ml medications Current Medications Medications Dose Ordered Sig/Melony Route Start Time Stop Time Status Last Admin Dose Admin Enoxaparin Sodium 40 mg DAILY SC 06/15/24 10:00 06/15/24 08:40 40 MG Lactated Ringer's 1,000 ml @ 100 mls/hr Q10H IV 06/14/24 11:30 06/16/24 03:30 100 MLS/HR Pantoprazole Sodium 40 mg DAILY IV 06/14/24 11:30 06/15/24 08:39 40 MG Cefoxitin Sodium 1 gm/Dextrose 50 ml @ 50 mls/hr Q8HR IV 06/14/24 14:00 06/15/24 15:01 50 MLS/HR Nitroglycerin 0.4 mg Q5MINP PRN SL 06/14/24 11:30 Morphine Sulfate 2 mg Q30M PRN IV 06/14/24 11:30 Atorvastatin Calcium 80 mg HS PO 06/14/24 22:00 Buspirone HCl 7.5 mg BID PO 06/14/24 22:00 Metoprolol Succinate 25 mg DAILY PO 06/15/24 10:00 Hydromorphone HCl 1 mg Q4HPRN PRN IV 06/15/24 07:15 06/15/24 23:13 1 MG Acetaminophen/ Hydrocodone Bitart 1 tab Q6HPRN PRN PO 06/15/24 07:15 06/15/24 08:39 1 TAB Nicotine 1 patch DAILY TD 06/16/24 10:00 Hydralazine HCl 5 mg Q10M PRN IV 06/16/24 08:45 06/16/24 09:36 UNV Morphine Sulfate 2 mg Q2HPRN PRN IV 06/16/24 08:45 06/16/24 08:46 UNV Midazolam HCl 1 mg Q10M PRN IV 06/16/24 08:45 06/16/24 09:26 UNV Ephedrine Sulfate 10 mg Q10M PRN IV 06/16/24 08:45 06/16/24 09:26 UNV Hydromorphone HCl 0.5 mg Q10M PRN IV 06/16/24 08:45 06/16/24 09:26 UNV objective General Appearance: alert, no distress HEENT: EOMI, PERRLA, normal external inspect of ears, no icterus, no nasal drainage Neck: no carotid bruit, no jugular venous distention (JVD), no lymphadenopathy Chest: normal thorax Respiratory: clear to auscultation, normal air movement Cardiovascular: regular rate and rhythm, no diastolic murmur, no jugular venous distention (JVD), no rub, no systolic murmur Abdominal: soft, no hepatomegaly, no mass, no splenomegaly, no tenderness Genitourinary: grossly normal external Musculoskeletal: no joint tenderness, no swelling Extremities: normal pulses, no calf tenderness, no clubbing, no cyanosis, no edema Skin: no bruising, no jaundice, no rash Neurological: alert, No focal deficit laboratory and microbiology Laboratory Tests 06/15/24 06:00 Test 06/15/24 06:00 Range/Units Serum Glucose 102 74-106 mg/dL Problem List 1.Acute cholecystitis Surgical consult, medication, monitoring 2.Sinus bradycardia Medication, monitoring 3.Hyperlipidemia medication, monitoring 4.Smoker Smoking cessation 5.History of [place] Monitoring Assessment/Plan Subjective Patient was not in room during assessment. Objective Patient is currently recovering in PACU. Patient is status post laparoscopic cholecystectomy by Dr. Garcia. Patient was admitted for abdominal pain related to acute cholecystitis. Patient was started on IV antibiotics and IV fluids. Patient was cardiac cleared by Dr. Mart. Plan Continue IV fluids. Continue pain medication as needed. DC plan when cleared by general surgery. Plan discussed with: Patient, Other MAYCO MCINTYRE NP Jun 16, 2024 09:44
[2024-06-16] MEDS: BUPIVACAINE HCL 0.25% P/F 10 ML VIAL ONE (09:55)
[2024-06-16] MEDS: NICOTINE 14 MG/24HR TOPICAL PATCH TD SCH (10:00)
[2024-06-16] MEDS ORDERED: SUGAMMADEX 200mg/2ml Vial (100MG/ML) IV ONE (10:04)
--- NOTE | 2024-06-16 10:58 | DVHOP2 ---
Operative Report [id number] AC CHOLECYSTITIS, INTRAABD ABSCESS, DENSE ADHESIONS DRAINAGE OF INTRAABD ABSCESS, LAP SRIRAM LAP CHOLECYSTECTOMY EBL 50 CC ONE DRAIN NO COMPLICATIONS EVANGELINA GEORGE MD Jun 16, 2024 10:58
[2024-06-16] MEDS: HYDROmorphone HCL 2 MG/ML VL/or syr IV PRN (11:02)
--- NOTE | 2024-06-16 11:09 | DVHOP ---
DATE OF SURGERY: 06/16/2024 PREOPERATIVE DIAGNOSES: Acute cholecystitis, was found to have intra-abdominal abscess with dense adhesions. POSTOPERATIVE DIAGNOSES: Acute cholecystitis, was found to have intra-abdominal abscess with dense adhesions. PROCEDURE: Laparoscopic lysis of adhesions with drainage of intra-abdominal abscess and laparoscopic cholecystectomy. SURGEON: Bertin Garcia MD SENIOR LABORATORY TECHNICIAN: None. ANESTHESIA: General. ESTIMATED BLOOD LOSS: Close to 50 mL. DRAINS: One drain was used. COMPLICATIONS: No complications were encountered. DESCRIPTION OF PROCEDURE: The patient was prepped and draped in the usual sterile fashion in the supine position and an infraumbilical incision was applied, was taken down to the fascia. The Veress needle was introduced and CO2 insufflation was started to a pressure of 15 mmHg. The needle was withdrawn, replaced by the 5 mm trocar and a telescope introduced and the gallbladder was visualized, was found to be acutely inflamed, distended, thick walled with intraabdominal abscess and empyema of the gallbladder and a 12 mm port was applied close to the xiphisternum and two 5 mm ports were applied more laterally in subcostal line with instruments in place. The patient in the head up and right upper lateral position. The cholecystostomy was done laparoscopically to allow the gallbladder to be grasped at the fundus and infundibulum. The adhesions were taken down. The cystic duct and artery were , dissected out and clipped proximally and distally using the Hem-o-Adonis clips and divided in between making sure CBD was kept out of harm's at all times and gallbladder was detached from the liver bed using Harmonic dissection and cautery. Once finally removed from the liver bed was placed in an EndoCatch bag. It was very bulky and voluminous and the EndoCatch bag was used to deliver the bag out of the gallbladder out of the xiphisternal wound after that wound had to be widened to allow the gallbladder in the EndoCatch bag to be removed. With this being done, the trocar was replaced back. The irrigation performed. Hemostasis was secured. The liver bed was cauterized for hemostasis and it was done. Lizandro powder was applied as well and a size 19 Anirudh drainage was placed to drain the liver bed, bringing out from the lateral subcostal incision. After that, one port had been withdrawn and securing the drain with a nylon suture. The CO2 was then let out. The patient was placed back supine and the trocars were withdrawn. The fascial edges of the xiphisternal wound were brought together using Vicryl suture in interrupted fashion and the skin incisions were brought together using 3-0 Monocryl suture in a subcuticular fashion. Surgical glue was applied and the patient tolerated the procedure well and was taken back to the recovery room in a stable condition. MD BERLIN Hdez/SERVANDO TID: [id number] RECEIPT: [id number] cc: Tarah Lim
--- NOTE | 2024-06-16 12:00 | DVHSR ---
APPROVED REPORT EXAM: Two-dimensional and M-mode echocardiogram with Doppler and color Doppler. Blood Pressure: 138/72 mmHg INDICATION Pre-Op RISK FACTORS Height: 5'8", Weight: 175 DIMENSIONS LVDd4.9 (3.8-5.7cm)LA (2D)3.7 (1.9-4.0cm)Aortic Root3.5 (2.0-3.7cm) LVDs3.5 (2.5-4.0cm)LA (MM) (1.9-4.0cm)Aortic Cusp Exc1.3 (1.5-2.0cm) EF (%) 50.0 (55-70%)Rt. Atrium4.0 (1.9-4.0cm)Asc. Aorta cm IVSd0.9 (0.7-1.1cm)RV (D) (1.8-2.4cm) PWd0.9 (0.7-1.1cm) Mitral Valve MitralMitral Stenosis E wave1.00m/sMV Mean GR.mmHg A wave0.77m/sMV Peak GR.mmHg E/A ratio1.32D MVAcm2 DECEL [id number] 1/2 Timems Aortic Valve Aortic ValveAortic Stenosis V11.10m/Beryl Mean GR.9mmHg V22.09m/Beryl Peak GR.17mmHg LVOT Diameter2.0 (1.8-2.4cm)Doppler AVA1.65cm2 Pulmonic Valve V21.34m/s Tricuspid Valve TR Velocity2.62m/s [id number] Other Information Technically limited study due to body habitus. Conclusion lvef 60% by visual estimate mild LVH aortic sclerosis noted no severe valve abnormalities noted
[2024-06-16 12:42] LABS: Basophils # (auto) 0 10 ^3/uL (0-0.2); Basophils % (auto) 0.3 % (0.0-2.0); Eosinophils # (auto) 0 10 ^3/uL (0-0.8); Eosinophils % (auto) 0.1 % (0.0-7.0); Hematocrit 41.8 % (41.0-53.0); Lymphocytes # (auto) 0.8 10 ^3/uL (0.4-5.4); Lymphocytes % (auto) 6.3 % (10.0-50.0); Mean Corpuscular Hgb Conc. 33.5 g/dL (32.0-36.0); Mean Corpuscular Volume 98.6 fL (80.0-100.0); Monocytes # (auto) 0.5 10 ^3/uL (0-1.3); Monocytes % (auto) 3.7 % (0.0-12.0); Neutrophils # (auto) 11.4 10 ^3/uL (1.6-8.6); Neutrophils % (auto) 89.6 % (37.0-80.0); Platelet Count (auto) 197 10^3/uL (140-450); Red Blood Cells 4.24 10^6/uL (4.5-5.90); Red Cell Distribution Width 12.8 % (11.8-14.3); White Blood Cell 12.7 10^3/uL (4.4-10.8)
[2024-06-16 12:53] LABS: Chloride 104 mmol/L (98-107); Potassium 4.2 mmol/L (3.5-5.1); Sodium 137 mmol/L (136-145)
[2024-06-16 12:54] LABS: Anion Gap 7 (5-15); Carbon Dioxide 26 mmol/L (20-31)
[2024-06-16 12:55] LABS: Calcium 9.4 mg/dL (8.7-10.4)
[2024-06-16 13:00] LABS: BUN/Creatinine Ratio 18.2 (10.0-20.0); Blood Urea Nitrogen 14 mg/dL (9-23)
[2024-06-16 13:17] LABS: Glucose 111 mg/dL (74-106)
--- NOTE | 2024-06-16 17:34 | DVHPN2 ---
Progress Note Date Seen: Jun 16, 2024 Resident Creating Document: CHRISSY HILARIO RESIDENT Medical Necessity Reason Pt with a Central, PICC or Fol: No Subjective Review of Systems The patient was seen and examined on the bedside. He is alert oriented x3. The patient is scheduled for laparoscopic cholecystectomy today. Objective vital signs Vital Sign Date Time Temp Pulse Resp B/P (MAP) Pulse Ox O2 Delivery O2 Flow Rate FiO2 06/16/24 17:00 97.8 71 18 115/77 (90) 94 97.8 06/16/24 12:20 Room Air* 0 21 Total Intake and Output 06/15/24 06/15/24 06/16/24 15:00 23:00 07:00 Intake Total 50 ml 50 ml Balance 50 ml 50 ml medications Current Medications Medications Dose Ordered Sig/Melony Route Start Time Stop Time Status Last Admin Dose Admin Enoxaparin Sodium 40 mg DAILY SC 06/15/24 10:00 06/15/24 08:40 40 MG Lactated Ringer's 1,000 ml @ 100 mls/hr Q10H IV 06/14/24 11:30 06/16/24 16:49 100 MLS/HR Pantoprazole Sodium 40 mg DAILY IV 06/14/24 11:30 06/15/24 08:39 40 MG Cefoxitin Sodium 1 gm/Dextrose 50 ml @ 50 mls/hr Q8HR IV 06/14/24 14:00 06/16/24 14:51 50 MLS/HR Nitroglycerin 0.4 mg Q5MINP PRN SL 06/14/24 11:30 Morphine Sulfate 2 mg Q30M PRN IV 06/14/24 11:30 Atorvastatin Calcium 80 mg HS PO 06/14/24 22:00 Buspirone HCl 7.5 mg BID PO 06/14/24 22:00 Metoprolol Succinate 25 mg DAILY PO 06/15/24 10:00 Hydromorphone HCl 1 mg Q4HPRN PRN IV 06/15/24 07:15 06/15/24 23:13 1 MG Acetaminophen/ Hydrocodone Bitart 1 tab Q6HPRN PRN PO 06/15/24 07:15 06/16/24 14:52 1 TAB Nicotine 1 patch DAILY TD 06/16/24 10:00 06/16/24 15:36 1 PATCH Midazolam HCl 1 mg Q10M PRN IV 06/16/24 08:45 06/16/24 18:30 Examination Physical examination: General Appearance: Alert, Oriented X3, Cooperative, No acute distress HEENT: Atraumatic, PERRLA, EOMI, Mucous membrane moist/pink Respiratory: Clear to auscultation, Normal air movement Cardiovascular: Regular rate, Normal S1, Normal S2, No murmurs, no chest wall tenderness Abdominal: Normal bowel sounds, Soft, tenderness in rt upper quadrant, No hepatospenomegaly, No masses Extremities: No clubbing, No cyanosis, No edema, Normal pulses, No tenderness/swelling Skin: No rashes, No breakdown, No significant lesion Neuro: Normal gait, Normal speech, Strength at 5/5 X4 ext, Normal tone, Sensation intact, Cranial nerves 3-12 NL, Reflexes 2+ Psych/Mental Status: Mental status NL, Mood NL laboratory and microbiology Laboratory Tests 06/16/24 12:18 Test 06/16/24 12:18 Range/Units Serum Glucose 111 H 74-106 mg/dL Labs and/or images reviewed: Labs reviewed by me, Image(s) reviewed by me Problem List/Assessment/Plan Problem List/Assessment/Plan Assessment: # intractable abdominal pain, nausea and vomiting likely due to acute cholecystitis # Acute cholecystitis # Cholelithiasis # History of CAD, s/p PTCA x1 stent # S/P Laparoscopic cholecystectomy and laparoscopic intra-abdominal adhesiolysis with PRIYANKA drain Plan: - - Continue IV lactated ringer 1000 mL at 100 mL/hours - Continue Pain medication and IV antibiotic as per primary team - Appreciated surgical consultation - Monitor vitals and labs. Plan discussed with Plan discussed with: Patient, CHRISSY Paredes RESIDENT Jun 16, 2024 17:34
[2024-06-17] VITALS (8 sets, daily range): BP systolic 95–113; BP diastolic 60–76; PULSE 50–80; RESP 16–18; TEMP 97.9–98.1; O2SAT 90–98
--- NOTE | 2024-06-17 12:54 | DVHPN2 ---
Progress Note - Dictate Date Seen: Jun 17, 2024 Medical Necessity Reason Pt with a Central, PICC or Fol: No vital signs Vital Sign Date Time Temp Pulse Resp B/P (MAP) Pulse Ox O2 Delivery O2 Flow Rate FiO2 06/17/24 09:34 60 95/60 06/17/24 09:00 98.1 17 95 98.1 06/17/24 08:00 Room Air* 0 21 Total Intake and Output 06/16/24 06/16/24 06/17/24 15:00 23:00 07:00 Intake Total 450 ml Output Total 0 ml Balance 0 ml 450 ml medications Current Medications Medications Dose Ordered Sig/Melony Route Start Time Stop Time Status Last Admin Dose Admin Enoxaparin Sodium 40 mg DAILY SC 06/15/24 10:00 06/17/24 09:35 40 MG Lactated Ringer's 1,000 ml @ 100 mls/hr Q10H IV 06/14/24 11:30 06/17/24 09:35 100 MLS/HR Pantoprazole Sodium 40 mg DAILY IV 06/14/24 11:30 06/17/24 09:35 40 MG Cefoxitin Sodium 1 gm/Dextrose 50 ml @ 50 mls/hr Q8HR IV 06/14/24 14:00 06/17/24 05:56 50 MLS/HR Nitroglycerin 0.4 mg Q5MINP PRN SL 06/14/24 11:30 Morphine Sulfate 2 mg Q30M PRN IV 06/14/24 11:30 Atorvastatin Calcium 80 mg HS PO 06/14/24 22:00 06/16/24 21:28 80 MG Buspirone HCl 7.5 mg BID PO 06/14/24 22:00 Metoprolol Succinate 25 mg DAILY PO 06/15/24 10:00 Hydromorphone HCl 1 mg Q4HPRN PRN IV 06/15/24 07:15 06/16/24 21:31 1 MG Acetaminophen/ Hydrocodone Bitart 1 tab Q6HPRN PRN PO 06/15/24 07:15 06/17/24 09:59 1 TAB Nicotine 1 patch DAILY TD 06/16/24 10:00 06/17/24 09:33 1 PATCH objective General Appearance: alert, no distress HEENT: EOMI, PERRLA, normal external inspect of ears, no icterus, no nasal drainage Neck: no carotid bruit, no jugular venous distention (JVD), no lymphadenopathy Chest: normal thorax Respiratory: clear to auscultation, normal air movement Cardiovascular: regular rate and rhythm, no diastolic murmur, no jugular venous distention (JVD), no rub, no systolic murmur Abdominal: soft, no hepatomegaly, no mass, no splenomegaly, no tenderness Genitourinary: grossly normal external Musculoskeletal: no joint tenderness, no swelling Extremities: normal pulses, no calf tenderness, no clubbing, no cyanosis, no edema Skin: no bruising, no jaundice, no rash Neurological: alert, No focal deficit laboratory and microbiology Laboratory Tests 06/16/24 12:18 Test 06/16/24 12:18 Range/Units Serum Glucose 111 H 74-106 mg/dL Problem List 1.Acute cholecystitis Surgical consult, medication, monitoring 2.Sinus bradycardia Medication, monitoring 3.Hyperlipidemia medication, monitoring 4.Smoker Smoking cessation 5.History of SD Monitoring Assessment/Plan Subjective Patient is awake and alert. Objective Patient is status post laparoscopic cholecystectomy done yesterday by Doctor Antoine Garcia. Patient has a PRIYANKA drain in place with approximately ten CC's of Serosanguinous fluid. Patient states he has been passing gas. Patient is tolerating a clear liquid diet. Plan Patient to continue to ambulate. Advanced diet to full liquid. Plan for possible removal of PRIYANKA drain by General surgeon. CIRILO planning for tomorrow. Plan discussed with: Patient, Other MAYCO MCINTYRE NP Jun 17, 2024 12:54
--- NOTE | 2024-06-17 13:54 | DVHPNRES ---
Progress Note Date Seen: Jun 17, 2024 Resident Creating Document: CHRISSY HILARIO RESIDENT Medical Necessity Reason Pt with a Central, PICC or Fol: No Subjective Review of Systems The patient was seen and examined on the bedside. He is alert oriented x3. Day 1 S/P laparoscopic cholecystectomy with laparoscopic adhesiolysis and 24 hour PRIYANKA drain collection 50 ml serosanguineous fluid. Complaint of mild pain around the incision site and mentioned passing flatus and patient is on full liquid diet. Objective vital signs Vital Sign Date Time Temp Pulse Resp B/P (MAP) Pulse Ox O2 Delivery O2 Flow Rate FiO2 06/17/24 13:00 98.0 68 16 110/76 (87) 98 98.0 06/17/24 08:00 Room Air* 0 21 Total Intake and Output 06/16/24 06/16/24 06/17/24 15:00 23:00 07:00 Intake Total 450 ml Output Total 0 ml Balance 0 ml 450 ml medications Current Medications Medications Dose Ordered Sig/Melony Route Start Time Stop Time Status Last Admin Dose Admin Enoxaparin Sodium 40 mg DAILY SC 06/15/24 10:00 06/17/24 09:35 40 MG Pantoprazole Sodium 40 mg DAILY IV 06/14/24 11:30 06/17/24 09:35 40 MG Cefoxitin Sodium 1 gm/Dextrose 50 ml @ 50 mls/hr Q8HR IV 06/14/24 14:00 06/17/24 05:56 50 MLS/HR Nitroglycerin 0.4 mg Q5MINP PRN SL 06/14/24 11:30 Morphine Sulfate 2 mg Q30M PRN IV 06/14/24 11:30 Atorvastatin Calcium 80 mg HS PO 06/14/24 22:00 06/16/24 21:28 80 MG Buspirone HCl 7.5 mg BID PO 06/14/24 22:00 Metoprolol Succinate 25 mg DAILY PO 06/15/24 10:00 Hydromorphone HCl 1 mg Q4HPRN PRN IV 06/15/24 07:15 06/16/24 21:31 1 MG Acetaminophen/ Hydrocodone Bitart 1 tab Q6HPRN PRN PO 06/15/24 07:15 06/17/24 09:59 1 TAB Nicotine 1 patch DAILY TD 06/16/24 10:00 06/17/24 09:33 1 PATCH Examination Physical examination: General Appearance: Alert, Oriented X3, Cooperative, mild distress HEENT: Atraumatic, PERRLA, EOMI, Mucous membrane moist/pink Respiratory: Clear to auscultation, Normal air movement Cardiovascular: Regular rate, Normal S1, Normal S2, No murmurs, no chest wall tenderness Abdominal: Normal bowel sounds, Soft, tenderness around the incision site. No hepatospenomegaly, No masses Extremities: No clubbing, No cyanosis, No edema, Normal pulses, No tenderness/swelling Skin: No rashes, No breakdown, No significant lesion Neuro: Normal gait, Normal speech, Strength at 5/5 X4 ext, Normal tone, Sensation intact, grossly intact cranial nerves. Psych/Mental Status: Mental status NL, Mood NL laboratory and microbiology Laboratory Tests 06/16/24 12:18 Test 06/16/24 12:18 Range/Units Serum Glucose 111 H 74-106 mg/dL Labs and/or images reviewed: Labs reviewed by me, Image(s) reviewed by me Problem List/Assessment/Plan Problem List/Assessment/Plan Assessment: # intractable abdominal pain, nausea and vomiting likely due to acute cholecystitis # Acute cholecystitis # Cholelithiasis # History of CAD, s/p PTCA x1 stent # S/P Laparoscopic cholecystectomy and laparoscopic intra-abdominal adhesiolysis with PRIYANKA drain Plan: - full liquid and advanced the diet as per surgery - Continue Pain medication and IV antibiotic as per primary team - Appreciated surgical consultation - Monitor vitals and labs. Plan discussed with Plan discussed with: Patient, Other CHRISSY HILARIO RESIDENT Jun 17, 2024 13:54
[2024-06-17 15:16] LABS: Chloride 104 mmol/L (98-107); Potassium 3.6 mmol/L (3.5-5.1); Sodium 138 mmol/L (136-145)
[2024-06-17 15:17] LABS: Anion Gap 10 (5-15); Calcium 9.5 mg/dL (8.7-10.4); Carbon Dioxide 24 mmol/L (20-31)
[2024-06-17 15:22] LABS: BUN/Creatinine Ratio 14.8 (10.0-20.0); Blood Urea Nitrogen 12 mg/dL (9-23); Glucose 79 mg/dL (74-106)
[2024-06-17 15:34] LABS: Basophils # (auto) 0 10 ^3/uL (0-0.2); Basophils % (auto) 0.2 % (0.0-2.0); Eosinophils # (auto) 0 10 ^3/uL (0-0.8); Eosinophils % (auto) 0.4 % (0.0-7.0); Hemoglobin 13.5 g/dL (13.5-17.5); Lymphocytes # (auto) 2.6 10 ^3/uL (0.4-5.4); Lymphocytes % (auto) 19.4 % (10.0-50.0); Mean Corpuscular Hgb Conc. 33.6 g/dL (32.0-36.0); Mean Corpuscular Volume 98.1 fL (80.0-100.0); Monocytes # (auto) 1.2 10 ^3/uL (0-1.3); Monocytes % (auto) 9.2 % (0.0-12.0); Neutrophils # (auto) 9.4 10 ^3/uL (1.6-8.6); Neutrophils % (auto) 70.8 % (37.0-80.0); Platelet Count (auto) 219 10^3/uL (140-450); Red Blood Cells 4.08 10^6/uL (4.5-5.90); White Blood Cell 13.3 10^3/uL (4.4-10.8)
--- NOTE | 2024-06-17 19:21 | DVHPN2 ---
Progress Note Date Seen: Jun 17, 2024 Medical Necessity Reason Pt with a Central, PICC or Fol: No Objective vital signs Vital Sign Date Time Temp Pulse Resp B/P (MAP) Pulse Ox O2 Delivery O2 Flow Rate FiO2 06/17/24 17:03 60 16 99/62 06/17/24 17:00 97.9 92 97.9 06/17/24 08:00 Room Air* 0 21 Total Intake and Output 06/16/24 06/16/24 06/17/24 15:00 23:00 07:00 Intake Total 450 ml Output Total 0 ml Balance 0 ml 450 ml medications Current Medications Medications Dose Ordered Sig/Melony Route Start Time Stop Time Status Last Admin Dose Admin Enoxaparin Sodium 40 mg DAILY SC 06/15/24 10:00 06/17/24 09:35 40 MG Pantoprazole Sodium 40 mg DAILY IV 06/14/24 11:30 06/17/24 09:35 40 MG Cefoxitin Sodium 1 gm/Dextrose 50 ml @ 50 mls/hr Q8HR IV 06/14/24 14:00 06/17/24 16:29 50 MLS/HR Nitroglycerin 0.4 mg Q5MINP PRN SL 06/14/24 11:30 Morphine Sulfate 2 mg Q30M PRN IV 06/14/24 11:30 Atorvastatin Calcium 80 mg HS PO 06/14/24 22:00 06/16/24 21:28 80 MG Buspirone HCl 7.5 mg BID PO 06/14/24 22:00 Metoprolol Succinate 25 mg DAILY PO 06/15/24 10:00 Hydromorphone HCl 1 mg Q4HPRN PRN IV 06/15/24 07:15 06/17/24 16:33 1 MG Acetaminophen/ Hydrocodone Bitart 1 tab Q6HPRN PRN PO 06/15/24 07:15 06/17/24 09:59 1 TAB Nicotine 1 patch DAILY TD 06/16/24 10:00 06/17/24 09:33 1 PATCH laboratory and microbiology Laboratory Tests 06/17/24 14:53 Test 06/17/24 14:53 Range/Units Serum Glucose 79 74-106 mg/dL Problem List/Assessment/Plan Problem List/Assessment/Plan AFEBRILE VSS ABD SOFT TENDER RUQ DRAIN SEROSANGUINEOUS 40 CC S/P LAP CHOLECYSTECTOMY NURIA DIET REPEAT LABS AM Plan discussed with: Patient EVANGELINA GEORGE MD Jun 17, 2024 19:21
[2024-06-18] VITALS (8 sets, daily range): BP systolic 95–105; BP diastolic 52–74; PULSE 52–86; RESP 17–20; TEMP 97.8–98.7; O2SAT 93–96
--- NOTE | 2024-06-18 12:16 | DVHPN2 ---
Progress Note Date Seen: Jun 18, 2024 Resident Creating Document: CHRISSY HILARIO RESIDENT Medical Necessity Reason Pt with a Central, PICC or Fol: No Subjective Review of Systems The patient was seen and examined on the bedside. He is alert oriented x3. Today status post laparoscopic cholecystectomy day 2. The patient is on soft diet and tolerating the diet, low complaint of abdominal pain. The patient is stable for discharge from GI standpoint. Objective vital signs Vital Sign Date Time Temp Pulse Resp B/P (MAP) Pulse Ox O2 Delivery O2 Flow Rate FiO2 06/18/24 10:45 53 114/65 06/18/24 09:00 97.9 20 94 97.9 06/18/24 08:00 Room Air* 0 21 Total Intake and Output 06/17/24 06/17/24 06/18/24 15:00 23:00 07:00 Intake Total 1950 ml 250 ml Output Total 628 ml 382 ml Balance 1322 ml -132 ml medications Current Medications Medications Dose Ordered Sig/Melony Route Start Time Stop Time Status Last Admin Dose Admin Enoxaparin Sodium 40 mg DAILY SC 06/15/24 10:00 06/18/24 10:44 40 MG Pantoprazole Sodium 40 mg DAILY IV 06/14/24 11:30 06/18/24 10:46 40 MG Cefoxitin Sodium 1 gm/Dextrose 50 ml @ 50 mls/hr Q8HR IV 06/14/24 14:00 06/18/24 06:01 50 MLS/HR Nitroglycerin 0.4 mg Q5MINP PRN SL 06/14/24 11:30 Morphine Sulfate 2 mg Q30M PRN IV 06/14/24 11:30 Atorvastatin Calcium 80 mg HS PO 06/14/24 22:00 06/17/24 21:16 80 MG Buspirone HCl 7.5 mg BID PO 06/14/24 22:00 Metoprolol Succinate 25 mg DAILY PO 06/15/24 10:00 Hydromorphone HCl 1 mg Q4HPRN PRN IV 06/15/24 07:15 06/17/24 21:24 1 MG Acetaminophen/ Hydrocodone Bitart 1 tab Q6HPRN PRN PO 06/15/24 07:15 06/17/24 09:59 1 TAB Nicotine 1 patch DAILY TD 06/16/24 10:00 06/18/24 10:45 1 PATCH Examination Physical examination: General Appearance: Alert, Oriented X3, Cooperative, No acute distress HEENT: Atraumatic, PERRLA, EOMI, Mucous membrane moist/pink Respiratory: Clear to auscultation, Normal air movement Cardiovascular: Regular rate, Normal S1, Normal S2, No murmurs, no chest wall tenderness Abdominal: Normal bowel sounds, Soft, No tenderness, No hepatospenomegaly, No masses Extremities: No clubbing, No cyanosis, No edema, Normal pulses, No tenderness/swelling Skin: No rashes, No breakdown, No significant lesion Neuro: Normal gait, Normal speech, Strength at 5/5 X4 ext, Normal tone, Sensation intact,grossly intact cranial nerves. Psych/Mental Status: Mental status NL, Mood NL laboratory and microbiology Laboratory Tests 06/17/24 14:53 Test 06/17/24 14:53 Range/Units Serum Glucose 79 74-106 mg/dL Labs and/or images reviewed: Labs reviewed by me, Image(s) reviewed by me Problem List/Assessment/Plan Problem List/Assessment/Plan Assessment: # intractable abdominal pain, nausea and vomiting likely due to acute cholecystitis # Acute cholecystitis # Cholelithiasis # History of CAD, s/p PTCA x1 stent # S/P Laparoscopic cholecystectomy and laparoscopic intra-abdominal adhesiolysis with PRIYANKA drain Plan: - Mechanical soft diet. - Continue Pain medication and IV antibiotic as per primary team - Appreciated surgical consultation - Monitor vitals and labs. - Patient is stable for discharge from GI stand point. Plan discussed with Plan discussed with: Patient, CHRISSY Paredes RESIDENT Jun 18, 2024 12:16
[2024-06-18] MEDS ORDERED: HYDR-4798 PO (12:18)
[2024-06-19 01:00] VITALS: BP 110/66; PULSE 66; RESP 18; TEMP 98.8; O2SAT 95
[2024-06-19 05:00] VITALS: BP 110/66; PULSE 68; RESP 18; TEMP 98.4; O2SAT 97
[2024-06-19 09:00] VITALS: BP 97/60; PULSE 57; RESP 20; TEMP 97.6; O2SAT 93
[2024-06-19 13:00] VITALS: BP 126/77; PULSE 62; RESP 20; TEMP 97.7; O2SAT 95
[2024-06-19 13:13] VITALS: TEMP 36.4
--- NOTE | 2024-06-19 14:18 | DVHPN2 ---
Progress Note Date Seen: Jun 19, 2024 Medical Necessity Reason Pt with a Central, PICC or Fol: No Objective vital signs Vital Sign Date Time Temp Pulse Resp B/P (MAP) Pulse Ox O2 Delivery O2 Flow Rate FiO2 06/19/24 13:13 36.4 06/19/24 13:00 62 20 126/77 (93) 95 06/19/24 08:00 Room Air* 0 21 Total Intake and Output 06/18/24 06/18/24 06/19/24 15:00 23:00 07:00 Intake Total 50 ml 50 ml Balance 50 ml 50 ml medications Current Medications Medications Dose Ordered Sig/Melony Route Start Time Stop Time Status Last Admin Dose Admin Enoxaparin Sodium 40 mg DAILY SC 06/15/24 10:00 06/19/24 09:55 40 MG Pantoprazole Sodium 40 mg DAILY IV 06/14/24 11:30 06/19/24 09:46 40 MG Cefoxitin Sodium 1 gm/Dextrose 50 ml @ 50 mls/hr Q8HR IV 06/14/24 14:00 06/19/24 05:12 50 MLS/HR Nitroglycerin 0.4 mg Q5MINP PRN SL 06/14/24 11:30 Morphine Sulfate 2 mg Q30M PRN IV 06/14/24 11:30 Atorvastatin Calcium 80 mg HS PO 06/14/24 22:00 06/18/24 21:24 80 MG Buspirone HCl 7.5 mg BID PO 06/14/24 22:00 Metoprolol Succinate 25 mg DAILY PO 06/15/24 10:00 Hydromorphone HCl 1 mg Q4HPRN PRN IV 06/15/24 07:15 06/18/24 13:49 1 MG Acetaminophen/ Hydrocodone Bitart 1 tab Q6HPRN PRN PO 06/15/24 07:15 06/19/24 13:07 1 TAB Nicotine 1 patch DAILY TD 06/16/24 10:00 06/19/24 09:49 1 PATCH laboratory and microbiology Laboratory Tests 06/17/24 14:53 Test 06/17/24 14:53 Range/Units Serum Glucose 79 74-106 mg/dL Problem List/Assessment/Plan Problem List/Assessment/Plan AFEBRILE VSS ABD SOFT TENDER RUQ DRAIN SEROSANGUINEOUS 10 CC S/P LAP CHOLECYSTECTOMY NURIA DIET NO COMPLICATIONS DC DRAIN CLEARED FOR DISCHARGE INSTRUCTIONS RE DIET ACTIVITY F/UP GIVEN Plan discussed with: Patient EVANGELINA GEORGE MD Jun 19, 2024 14:18
--- NOTE | 2024-06-19 20:36 | DVHDS2 ---
Discharge Summary Date of Admission Jun 14, 2024 at 11:16 Date of Discharge: Jun 18, 2024 Admitting Diagnosis Acute cholecystitis Labs/Diagnostic Data: Laboratory Results Test 06/17/24 14:53 06/16/24 12:18 06/15/24 13:50 06/15/24 06:00 White Blood Count 13.3 10^3/uL (4.4-10.8) Red Blood Count 4.08 10^6/uL (4.5-5.90) Hemoglobin 13.5 g/dL (13.5-17.5) Hematocrit 40.0 % (41.0-53.0) Mean Corpuscular Volume 98.1 fL (80.0-100.0) Mean Corpuscular Hemoglobin 33.0 pg (28.0-32.0) Mean Corpuscular Hemoglobin Concent 33.6 g/dL (32.0-36.0) Red Cell Distribution Width 13.0 % (11.8-14.3) Platelet Count 219 10^3/uL (140-450) Mean Platelet Volume 9.0 fL (6.9-10.8) Neutrophils (%) (Auto) 70.8 % (37.0-80.0) Lymphocytes (%) (Auto) 19.4 % (10.0-50.0) Monocytes (%) (Auto) 9.2 % (0.0-12.0) Eosinophils (%) (Auto) 0.4 % (0.0-7.0) Basophils (%) (Auto) 0.2 % (0.0-2.0) Neutrophils # (Auto) 9.4 10 ^3/uL (1.6-8.6) Lymphocytes # (Auto) 2.6 10 ^3/uL (0.4-5.4) Monocytes # (Auto) 1.2 10 ^3/uL (0-1.3) Eosinophils # (Auto) 0 10 ^3/uL (0-0.8) Basophils # (Auto) 0 10 ^3/uL (0-0.2) Nucleated Red Blood Cells 0.0 % Sodium Level 138 mmol/L (136-145) Potassium Level 3.6 mmol/L (3.5-5.1) Chloride Level 104 mmol/L (98-107) Carbon Dioxide Level 24 mmol/L (20-31) Anion Gap 10 (5-15) Blood Urea Nitrogen 12 mg/dL (9-23) Creatinine 0.81 mg/dL (0.700-1.30) Glomerular Filtration Rate Calc 108 mL/min (>90) BUN/Creatinine Ratio 14.8 (10.0-20.0) Serum Glucose 79 mg/dL (74-106) Calcium Level 9.5 mg/dL (8.7-10.4) Magnesium Level 2.0 mg/dL (1.6-2.6) Urine Color Light-yellow (Yellow) Urine Clarity Clear (Clear) Urine pH 6.5 (5.0-9.0) Urine Specific [place] 1.022 (1.001-1.035) Urine Protein Negative (Negative) Urine Ketones 2+ (Negative) Urine Blood 1+ /uL (Negative) Urine Nitrite Negative (Negative) Urine Bilirubin Negative (Negative) Urine Urobilinogen Normal mg/dL (Negative) Urine Leukocyte Esterase Negative /uL (Negative) Urine RBC 15 /hpf (0 - 3) Urine Microscopic WBC 1 /HPF (0-3) Urine Squamous Epithelial Cells None seen /hpf (<5) Urine Bacteria None seen /hpf (None Seen) Urine Glucose Normal mg/dL (Normal) Total Bilirubin 1.0 mg/dL (0.2-1.0) Aspartate Amino Transferase (AST) 18 U/L (13-40) Alanine Aminotransferase (ALT) 29 U/L (7-40) Alkaline Phosphatase 79 U/L (46-116) Total Protein 6.8 g/dL (5.7-8.2) Albumin 4.6 g/dL (3.2-4.8) Test 06/14/24 16:13 06/14/24 07:05 Prothrombin Time 11.3 sec (9.3-11.8) Prothrombin Time INR 1.07 (0.9-1.15) Hepatitis B Surface Antigen Negative (Negative) Hepatitis C Antibody Negative (Negative) Lactic Acid Level 1.4 mmol/L (0.4-2.0) Lipase 31 U/L (12-53) Other Laboratory Tests 06/17/24 14:53 Brief Hx & Hospital Course: 49 year old male is complaining of right upper quadrant abdominal pain for one day. Patient also reports nausea and vomiting. Patient states pain feels like previous gallbladder attack. Patient was admitted on June 14, 2024 for acute abdominal pain related to acute cholecystitis. Patient was seen by general surgeon Dr. Garcia as well as GI Dr. Jaziel Garcia. Patient is status post laparoscopic cholecystectomy. PRIYANKA drain was successfully removed by general surgeon. Patient was able to tolerate a soft diet and he had several bowel movements and was positive for flatus. Pain medication with sent to patient's pharmacy. He will follow-up with his PCP in 1 week. The patient received proper medical treatment and medications. Vital signs, Imaging and Laboratory Work was monitored daily. All consults recommendations were followed as provided. There were no complaints or new complaints upon discharge, all questions and concerns were answered. Patient was advised to return to the ER or call 911 if any headaches, dizziness, shortness of breath, chest pain, bleeding, fevers, or worsening of medical condition. Patient/Family was counseled about treatment plan, medications, possible side effects, patient verbalized understanding. All questions were answered to the best of my ability. The patient symptoms improved and they are okay to be DC. Condition at Discharge: Fair Final Diagnosis/Problems List S/P laparoscopic cholecystectomy Acute cholecystitis Sinus bradycardia Hyperlipidemia Smoker History of OR Leukocytosis related inflammation from recent surgery, no sepsis no sirs Discharge Disposition: Home Discharge Instruct/Medications Diet: Cardiac 2g Na,low cholest Activity: No Restrictions, As Tolerated Follow Up/Referral: pcp [address] Garcia- please call for follow up appointment Discharge Statement: "Patient was advised to return to the ER or call 911 if any headaches, dizziness, shortness of breath, chest pain, abdominal pain, bleeding, fevers, or worsening of medical condition. Patient was counseled about treatment plan, medications, possible side effects, patientverbalized understanding. All questions were answered to the best of my ability. This discharge took greater then 30 minutes in planning, reviewing documentation, counseling the patient, and discussing with other team members." ASSESSMENT ASSESSMENT Assessment S/P laparoscopic cholecystectomy DAVID DUNAWAY Jun 19, 2024 20:36
== END 2024-06-19 14:08 | disposition home or self-care (01) | DRG 263 ==
LOC: ER 05:54 → TELE 11:16 → TELE-WESTW 06-15 21:38 → OVERFLOW 06-16 15:22 → WEST WING 06-16 15:40 → OVERFLOW 06-17 13:09 → TELE-WESTW 06-17 13:14
PROVIDERS: ADMIT Nurse Practitioner; ATTEND Nurse Practitioner
PROC: 0DNW4ZZ Release Peritoneum, Percutaneous Endoscopic Approach (ICD-10-PCS; 2024-06-16)
PROC: 0FT44ZZ Resection of Gallbladder, Percutaneous Endoscopic Approach (ICD-10-PCS; principal; 2024-06-16 08:25)
DX: K80.00 Calculus of gallbladder with acute cholecystitis without obstruction (principal); K65.1 Peritoneal abscess; K76.0 Fatty (change of) liver, not elsewhere classified; K66.0 Peritoneal adhesions (postprocedural) (postinfection); E66.9 Obesity, unspecified; E78.5 Hyperlipidemia, unspecified; Z68.28 Body mass index [BMI] 28.0-28.9, adult; F17.210 Nicotine dependence, cigarettes, uncomplicated; I10 Essential (primary) hypertension; I25.10 Atherosclerotic heart disease of native coronary artery without angina pectoris; I25.2 Old myocardial infarction; Z95.5 Presence of coronary angioplasty implant and graft; Z79.899 Other long term (current) drug therapy
CPT/HCPCS: 36415; 71045; 76705; 80048; 80053; 81001; 83605; 83690; 83735; 85025; 85610; 86803; 87340; 93005; 93306; 99291; G0378; J0330; J1100; J2250; J2405; J2470; J2704; J3490; J7060

== ENCOUNTER 2025-01-18 08:22 | Outpatient (CLI) | payer MEDICAID ==
[~2025-01-18] VITALS: Ht 172.7 cm; Wt 83.0 kg
[~2025-01-18 08:22] MED LIST changes: -ASPI-325 PO; -BUSP7.5T8 PO; +HYDR-4798 PO; +METO25TA93 PO
[2025-01-18] MEDS: REGADENOSON 0.4 MG/5 ML SYRG IV ONE ×2 (10:15→10:29)
--- NOTE | 2025-01-18 14:04 | DVHSR ---
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 Time of rest injection: 09:00 Date: 01/18/2025 Time of rest imagin:00 Date: 01/18/2025 Administration Route: IV Administration Site: Right Hand Pharmacologic Stress Pharmacologic stress test was performed by injecting Regadenoson 0.4 mg IV push followed by the intra venous injection of 30.4 mCi of Tc-99m Sestamibi. Time of stress injection: 10:29 Date: 01/18/2025 Time of stress imagin:14 Date: 01/18/2025 Administration Route: IV Administration Site: Right Arm Gated Stress SPECT was performed 45 minutes after stress injection. The images were gated to evaluate regional wall motion and calculate left ventricular ejection fracti on. Stress only was performed in the Supine position. Nuclear Conclusion Nuclear Findings: negative for ischemia lvef 38% moderaet LV dysfunction infarcted infero and inferoalateral wall c/w previous infarct
== END 2025-01-18 17:00 | disposition home or self-care (01) ==
LOC: XYW 08:22
PROVIDERS: ATTEND Internal Medicine Cardiovascular Disease
DX: I11.9 Hypertensive heart disease without heart failure (principal); I20.9 Angina pectoris, unspecified; R07.9 Chest pain, unspecified
CPT/HCPCS: 78452; 93017; A9500; J2785